=== PATIENT | male | born 1955 | race Caucasian/White ===

== ENCOUNTER 2017-12-23 18:25 | Inpatient (IN) | payer OTHER ==
--- NOTE | 2017-12-23 18:38 | EDM.PDOC ---
ED HPI GENERAL MEDICAL PROBLEM - General Chief Complaint: General Stated Complaint: Fever Time Seen by Provider: 12/23/17 18:35 Source of Information: Reports: Patient, Family (), Old Records ([facility] chart/EMR) History Limitations: Reports: No Limitations - History of Present Illness INITIAL COMMENTS - FREE TEXT/NARRATIVE: The patient was brought to the emergency room via private automobile by his for evaluation of progressive fever, chills, sore throat, and generalized arthralgias nonspecific dizziness, moderate generalized weakness, and additional mild mostly clear productive cough with symptoms starting at about 01 :20 a.m. this morning. The patient did have a fever of 105 at 17:30 hours this afternoon with 1000 g of Tylenol taken at that time. His has had some sore throat type symptoms, however no history of fever, current antibiotic therapy, etc. He denies any other known exposure to infection. The patient denies any chest pain/pressure, heart flutter, orthostasis, orthopnea, diaphoresis, paresthesias, recent decreased exercise tolerance, or any other anginal-type symptoms. No recent history of abdominal pain, heartburn, nausea, diarrhea, melena, gross hematochezia, or any food intolerance, including fatty foods, etc. with normal bowel movement earlier this morning. He denies any gross hematuria, colic, or other UTI symptoms. The patient also denies any recent wheezing, dyspnea, etc... Onset: Today, Gradual Onset Date: 12/23/17 Onset Time: 01:20 Duration: Constant, Getting Worse Location: Reports: Generalized (As above), Other (Sore throat) Quality: Reports: Ache Severity: Mild Improves with: Reports: None Worsens with: Reports: None Context: Reports: Sick Contact (As above) Associated Symptoms: Reports: Confusion, Cough, Fever/Chills, Weakness. Denies : Chest Pain, cough w sputum, Diaphoresis, Headaches, Loss of Appetite, Malaise , Nausea/Vomiting, Rash, Seizure, Shortness of Breath, Syncope Treatments [employer]: Reports: Acetaminophen Throat Pain Score (Numeric/FACES): 3 - Related Data Allergies Allergy/AdvReac Type Severity Reaction Status Date / Time amoxicillin trihydrate Allergy Hives Verified 11/21/15 16:04 [From Augmentin] potassium clavulanate Allergy Hives Verified 11/21/15 16:04 [From Augmentin] Home Meds: Home Meds Etodolac [Lodine] 300 mg PO DAILY 07/02/14 [History] Gabapentin [Neurontin] 300 mg PO BID 07/02/14 [History] Simvastatin [Zocor] 10 mg PO BEDTIME 07/02/14 [History] Valsartan/Hydrochlorothiazide [Diovan Hct 160-25 mg Tablet] 1 tab PO DAILY 07/02 [History] amLODIPine [Norvasc] 10 mg PO DAILY 07/02/14 [History] Acetaminophen 1,000 mg PO Q6H 12/23/17 [History] Sulfacetamide Sodium/Sulfur [Sulfacetamide-Sulfur 10-5% Crm] 1 dose TOP DAILY [History] metroNIDAZOLE [Metronidazole] 1 applic TOP BID 12/23/17 [History] Past Medical History HEENT History: Reports: Hard of Hearing, Impaired Vision. Denies: Allergic Rhinitis, Cataract, Glaucoma, Macular Degeneration, Retinal Detachment Other HEENT History: The patient wears glasses. 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 Cardiovascular History: Reports: High Cholesterol, Hypertension, Other (See Below). Denies: Afib, Aneurysm, Arrhythmia, Blood Clots/VTE/DVT, CAD, Heart Failure, Heart Murmur, ND, Pulmonary Hypertension, PVD, Syncope Other Cardiovascular History: Coronary artery disease and cardiomegaly by distant chest x-ray, however no clinical previous history of heart disease. Respiratory History: Reports: Bronchitis, Recurrent, Pneumonia, Recurrent. Denies: Asthma, COPD, Intubation, Difficult, Intubation, Previous, PE, Pneumothorax, Sleep Apnea, TB Gastrointestinal History: Reports: Gastritis. Denies: Bowel Obstruction, Celiac Disease, Cholelithiasis, Chronic Constipation, Chronic Diarrhea, Colon Polyp, Fecal Incontinence, GERD, GI Bleed, Hepatitis, Inflammatory Bowel Disease , Irritable Bowel Syndrome, Jaundice, Pancreatitis, PUD Genitourinary History: Reports: BPH. Denies: Acute Renal Failure, Chronic Renal Insuffiency, Renal Calculus, Retention, Urinary, STD, Urinary Incontinence , UTI, Recurrent Musculoskeletal History: Reports: Arthritis, Back Pain, Chronic, Osteoarthritis , Other (See Below). Denies: Amputation, Fracture, Gout, Neck Pain, Chronic, Osteoporosis, RA, SLE Other Musculoskeletal History: Mild scoliosis. Neurological History: Reports: Neuropathy, Peripheral. Denies: Cerebral Aneurysms, Concussion, CVA, Headaches, Chronic, Head Trauma, Migraines, MS, Parkinson's, Seizure, TIA Psychiatric History: Reports: None. Denies: Abuse, Victim of, ADD, ADHD, Addiction, Anxiety, Depression, Psych Hospitalization(s), PTSD, Suicide Attempt , Suicidal Ideation Endocrine/Metabolic History: Reports: None. Denies: Diabetes, Type I, Diabetes , Type II, Diabetes Mellitus, Type 3c, Hypothyroidism, IDDM Hematologic History: Reports: None. Denies: Anemia, Blood Transfusion(s), Iron Deficiency Immunologic History: Reports: None. Denies: AIDS, HIV, SLE Oncologic (Cancer) History: Reports: None. Denies: Basal Cell Carcinoma, Colon , Hodgkin's Lymphoma, Leukemia, Lymphoma, Malignant Melanoma, Non-Hodgkin's Lymphoma, Prostate Dermatologic History: Reports: None. Denies: Eczema, Psoriasis - Infectious Disease History Infectious Disease History: Reports: None, Chicken Pox. Denies: C-Difficile, Measles, Meningitis, Mononucleosis, MRSA, Mumps, Pertussis (Whooping Cough), Rheumatic Fever, Rubella, Scarlet Fever, Shingles, TB, VRE - Past Surgical History Head Surgeries/Procedures: Reports: None HEENT Surgical History: Reports: Adenoidectomy, Oral Surgery, Tonsillectomy, Other (See Below). Denies: Eye Surgery, LASIK, Myringotomy w Tube(s), Naso- Sinus Surgery Other HEENT Surgeries/Procedures: Tonsillectomy and adenoidectomy as a child. [place] teeth extraction 4. Cardiovascular Surgical History: Reports: None. Denies: Varicose, Vascular Surgery Respiratory Surgical History: Reports: None. Denies: Thoracentesis GI Surgical History: Reports: Appendectomy, Colonoscopy, Other (See Below). Denies: Cholecystectomy, EGD, Hernia, Abdominal, Hernia, Inguinal, Hernia Repair /Other, Polypectomy Other GI Surgeries/Procedures: Appendectomy at about age 6. Colonoscopy on . Male Surgical History: Reports: Circumcision, Other (See Below). Denies: TURP-Transurethral Resection of Prostate, Vasectomy Other Male Surgeries/Procedures: Circumcision as an . Endocrine Surgical History: Reports: None. Denies: Thyroid Biopsy Neurological Surgical History: Reports: None. Denies: C-Spine, Discectomy, Laminectomy, Lumbar Spine, Sacral Spine, Spinal Fusion, Thoracic Spine, Vertebroplasty Musculoskeletal Surgical History: Reports: Arthroscopic Procedure, Carpal Tunnel , Shoulder Surgery, Other (See Below). Denies: Ganglion Cyst, ORIF, Shoulder Replacement Other Musculoskeletal Surgeries/Procedures:: Carpal tunnel releaseleft-sided. Arthroscopic right shoulder rotator cuff repair in 2012. Oncologic Surgical History: Reports: None Dermatological Surgical History: Reports: None - Past Imaging History Past Imaging History: Reports: CAT Scan (CT of the C-spine on 10/21/07. CT of the neck, soft tissue, on 10/26/07. CT of the maxillofacial region on 04/28/08.), MRI (Right shoulder on 02/21/12. Left knee on 07/18/06.) Social & Family History - Family History HEENT: Reports: None. Denies: Cataract, Glaucoma, Macular Degeneration, Retinal Detachment Cardiac: Reports: Hypertension, Other (See Below). Denies: Afib, Aneurysm, Arrhythmia, Blood Clots/VTE/DVT, CAD, Heart Failure, Heart Murmur, High Cholesterol, ND, PVD/COD, Syncope Other Cardiac Family History: Hypertension in mother. Respiratory: Reports: Sleep Apnea. Denies: Asthma, COPD, PE, Pneumothorax Other Respiratory Family Hisory: Brother with sleep apnea. GI: Reports: None, Pancreatitis, Other (See Below). Denies: Celiac Disease, Cholelithiasis, Chronic Constipation, Colon Polyps, GERD, GI bleed, Inflammatory Bowel Disease, Irritable Bowel Syndrome, PUD Other GI Family History: Father with fatal pancreatitis at age 76. : Reports: None. Denies: Renal Calculus, Renal Disease/Insufficiency OBGYN: Reports: None. Denies: Endometriosis, Recurrent Spontaneous Musculoskeletal: Reports: None. Denies: Arthritis, Gout, Osteoarthritis, RA, SLE Neurological: Reports: Cerebral Aneurysms, CVA, Other (See Below). Denies: Alzheimers Disease, Dementia, Migraines, MS, Parkinson's, Seizure, TIA Other Neurological Family History: Father with cerebral aneurysm with hemorrhagic CVA in his early 70s. Psychiatric: Reports: None. Denies: Abuse, Victim of, ADD, ADHD, Anxiety, Depression, Psych Hospitalization(s), PTSD, Suicide Attempt Endocrine/Metabolic: Reports: Diabetes, type II, IDDM, Other (See Below). Denies: Diabetes, Type I, Diabetes Mellitus, Type 3c, Hypothyroidism Other Endocrine/Metabolic Family History: Mother with IDDM. Hematologic: Reports: None. Denies: Anemia Immunologic: Reports: None. Denies: AIDS, HIV, SLE Dermatologic: Reports: None. Denies: Eczema, Psoriasis Oncologic: Reports: None. Denies: Colon, Esophageal, Hodgkin's Lymphoma, Leukemia, Non-Hodgkin's Lymphoma, Pancreatic, Prostate, Skin - Tobacco Use Smoking Status *Q: Former Smoker Tobacco Use Within Last Twelve Months: No Years of Tobacco use: 20 Packs/Tins Daily: 1.5 Used Tobacco, but Quit: Yes Month/Year Tobacco Last Used: 1982 Smoking Cessation Information Provided To Patient: No Second Hand Smoke Exposure: No Second Hand Smoke Education Provided: No - Caffeine Use Caffeine Use: Reports: Coffee (2 cups per day), Soda (2 sodas per week). Denies : Energy Drinks, Tea - Alcohol Use Alcohol Use History: Yes Days Per Week of Alcohol Use: 0 Number of Drinks Per Day: 1 Number of Drinks Per Day Comment: Usually one beer every 2 weeks. No previous DWIs, problems with alcohol abuse, etc. Total Drinks Per Week: 0 Alcohol Use in Last Twelve Months: Yes Alcohol Use Frequency: Rarely - Recreational Drug Use Recreational Drug Use: No Drug Use in Last 12 Months: No Recreational Drug Type: Denies: Amphetamines (Speed), Cocaine, Dextromethorphan (Cough Syrup), Heroin, Inhalants (Glues, Solvents, Aerosols), LSD (Acid), Marijuana/Hashish, Methamphetamine, Morphine, Oxycodone - Living Situation & Occupation Living situation: Reports: (1980, 2 children), with Family (With ) Occupation: Employed ([employer] for [employer] ED ROS GENERAL - Review of Systems Review Of Systems: ROS reveals no pertinent complaints other than HPI. ED EXAM, GENERAL - Physical Exam Exam: See Below Exam Limited By: Uncooperative General Appearance: Alert, No Apparent Distress Eye Exam: Bilateral Eye: EOMI, Normal Inspection (No nystagmus. Patient wearing glasses), PERRL Ears: Normal External Exam, Normal Canal, Hearing Grossly Normal, Normal TMs Nose: Normal Mucosa, No Blood, Clear Rhinorrhea Throat/Mouth: Normal Lips, Normal Teeth, Normal Gums, Normal Voice, No Airway Compromise. No: Normal Oropharynx (Trace erythema in the posterior pharynx. Tonsils are absent), Dysphagia, Perioral Cyanosis Head: Atraumatic, Normocephalic. No: Facial Swelling, Facial Tenderness, Sinus Tenderness Neck: Normal Inspection, Supple, Non-Tender, Full Range of Motion. No: Lymphadenopathy (L), Lymphadenopathy (R), Thyromegaly Respiratory/Chest: No Respiratory Distress, Lungs Clear, Normal Breath Sounds, No Accessory Muscle Use, Chest Non-Tender. No: Pleural Rub, Retractions Cardiovascular: Normal Peripheral Pulses, No Edema, No Gallop, No JVD, No Murmur , No Rub, Tachycardia (Regular rhythm). No: Gallop/S3, Gallop/S4 Peripheral Pulses: 2+: Radial (L), Radial (R), Dorsalis Pedis (L), Dorsalis Pedis (R) GI/Abdominal: Normal Bowel Sounds, Soft, Non-Tender, No Organomegaly, No Distention, No Abnormal Bruit, No Mass. No: Guarding (Male) Exam: Deferred Rectal (Males) Exam: Deferred Back Exam: Normal Inspection, Full Range of Motion. No: CVA Tenderness (L), CVA Tenderness (R), Muscle Spasm Extremities: Normal Inspection, Normal Range of Motion, Non-Tender, No Pedal Edema, Normal Capillary Refill. No: Narcisa's Sign Neurological: Alert, Oriented, CN II-XII Intact, Normal Cognition, Normal Gait, Normal Reflexes (Negative Babinski's), No Motor/Sensory Deficits Psychiatric: Normal Affect, Normal Mood Skin Exam: Warm, Dry, Intact, Normal Color, No Rash, Diaphoretic (Warm). No: Rash, Wound/Incision Lymphatic: No Adenopathy Course - Vital Signs Last Recorded V/S: Last Vital Signs Temp 39.4 C H 12/23/17 18:25 Pulse 107 H 12/23/17 19:35 Resp 20 12/23/17 19:35 BP 155/80 H 12/23/17 19:35 Pulse Ox 97 12/23/17 19:35 Vital Signs - 24 hr 12/23/17 12/23/17 12/23/17 18:25 18:35 18:50 Temperature [ 39.4 C H Temporal] Pulse, 120 H 113 H 114 H Peripheral [ Left Pulse Oximetry] Respiratory 20 19 22 H Rate Blood Pressure 148/81 H 144/90 H 126/62 [Left Upper Arm ] O2 Sat by Pulse 96 96 96 Oximetry 12/23/17 12/23/17 19:05 19:20 Temperature [ Temporal] Pulse, 112 H 110 H Peripheral [ Left Pulse Oximetry] Respiratory 17 18 Rate Blood Pressure 149/87 H 147/88 H [Left Upper Arm ] O2 Sat by Pulse 97 97 Oximetry - Orders/Labs/Meds Orders: Active Orders 24 hr Category Date Time Status Cardiac Monitoring [RC] . DIRECTED Care 12/23/17 18:41 Inactive Cardiac Monitoring [RC] CONTINUOUS Care 12/23/17 18:38 Active Communication Order [RC] ROUTINE Care 12/23/17 18:38 Active Oxygen Therapy, ED [RC] PRN Care 12/23/17 18:38 Active Peripheral IV Care [RC] . DIRECTED Care 12/23/17 18:39 Active Peripheral IV Care [RC] . DIRECTED Care 12/23/17 19:01 Active Pulse Oximetry [RC] CONTINUOUS Care 12/23/17 18:38 Active Up With Assistance [RC] ASDIRECTED Care 12/23/17 18:38 Active Nothing Per Oral Diet [DIET] Diet 12/23/17 Breakfast Active Chest 1V Frontal [CR] Stat Exams 12/23/17 18:51 Taken Chest 2V [CR] Stat Exams 12/23/17 18:38 Stop Req CULTURE BLOOD [BC] Stat Lab 12/23/17 18:35 Received CULTURE BLOOD [BC] Stat Lab 12/23/17 18:39 Ordered CULTURE SPUTUM + SMEAR [RM] Urgent Lab 12/23/17 18:38 Ordered Azithromycin [Zithromax] 500 mg Med 12/23/17 18:45 Active Sodium Chloride 0.9% [Normal Saline] 250 ml IV Q24H Sodium Chloride 0.9% [Saline Flush] Med 12/23/17 18:38 Active 10 ml FLUSH ASDIRECTED PRN Sodium Chloride 0.9% [Saline Flush] Med 12/23/17 19:01 Active 10 ml FLUSH ASDIRECTED PRN Vancomycin 1 gm Med 12/23/17 18:45 Active Sodium Chloride 0.9% [Normal Saline] 250 ml IV Q24H Blood Culture x2 Reflex Set [OM.PC] Stat [facility] 12/23/17 18:38 Ordered Obtain Past Medical Record [OM.PC] Stat Ot 12/23/17 18:38 Active Peripheral IV Insertion Adult [OM.PC] Stat Ot 12/23/17 18:38 Ordered Peripheral IV Insertion Adult [OM.PC] Stat [facility] 12/23/17 19:01 Ordered Resuscitation Status Routine Resus Stat 12/23/17 18:38 Ordered Medication Orders Azithromycin 500 mg/ Sodium (Chloride) 250 mls @ 250 mls/hr IV Q24H [facility] Last Admin: 12/23/17 19:47 Dose: 250 mls/hr Vancomycin HCl 1 gm/ Sodium (Chloride) 250 mls @ 250 mls/hr IV Q24H [facility] Last Admin: 12/23/17 19:06 Dose: 250 mls/hr Sodium Chloride (Saline Flush) 10 ml FLUSH ASDIRECTED PRN PRN Reason: Keep Vein Open Sodium Chloride (Saline Flush) 10 ml FLUSH ASDIRECTED PRN PRN Reason: Keep Vein Open Labs: Laboratory Tests 12/23/17 12/23/17 12/23/17 Range/Units 18:35 18:35 18:35 WBC 17.7 H (4.0-10.2) K/uL RBC 5.00 (4.33-5.41) M/uL Hgb 15.0 (13.1-16.8) g/dL Hct 43.4 (39.0-49.0) % MCV 86.8 (84.0-98.0) fL MCH 30.0 (28.2-33.3) pg MCHC 34.6 (31.7-36.0) g/dL RDW 13.5 (11.2-14.1) % Plt Count 201 (150-350) K/uL Neut % (Auto) 83.7 H (45.0-80.0) % Lymph % (Auto) 7.2 L (10.0-50.0) % Campbell % (Auto) 8.8 (2.0-14.0) % Eos % (Auto) 0.1 (0.0-5.0) % Baso % (Auto) 0.2 (0.0-2.0) % Neut # (Auto) 14.83 H (1.40-7.00) K/uL Lymph # (Auto) 1.28 (0.50-3.50) K/uL Campbell # (Auto) 1.55 H (0.00-1.00) K/uL Eos # (Auto) 0.01 (0.00-0.50) K/uL Baso # (Auto) 0.03 (0.00-0.20) K/uL Sodium 139 (136-145) mmol/L Potassium 3.4 L (3.5-5.1) mmol/L Chloride 102 (98-107) mmol/L Carbon Dioxide 23.9 (21.0-32.0) mmol/L BUN 18 (7-18) mg/dL Creatinine 1.01 (0.51-1.17) mg/dL Est Cr Clr Drug Dosing 90.72 mL/min Estimated GFR (MDRD) > 60 mL/min Glucose 137 H (74-106) mg/dL Lactic Acid 1.6 (0.4-2.0) mmol/L Calcium 8.6 (8.5-10.1) mg/dL Magnesium 1.6 L (1.8-2.4) mg/dL Total Bilirubin 0.6 (0.2-1.0) mg/dL AST 16 (15-37) U/L ALT 30 (12-78) U/L Alkaline Phosphatase 78 (46-116) IU/L Total Protein 7.9 (6.4-8.2) g/dL Albumin 3.4 (3.4-5.0) g/dL Blood cultures 2 were collected Microbiology 12/23/17 18:38 Influenza Type A Antigen Screen - Final Nasal, Unspecified NEGATIVE INFLUENZA A VIRUS AG Influenza Type B Antigen Screen - Final NEGATIVE INFLUENZA B VIRUS AG 12/23/17 18:44 Group A Streptococcus Rapid Screen - Final Throat Positive For Group A Strep Ag Meds: Medications Generic Name Dose Route Start Last Admin Trade Name Freq PRN Reason Stop Dose Admin Azithromycin 500 mg/ Sodium 250 mls @ 250 mls/hr 12/23/17 18:45 12/23/17 19: 47 Chloride IV 250 mls/hr Q24H ALMITA Administration Vancomycin HCl 1 gm/ Sodium 250 mls @ 250 mls/hr 12/23/17 18:45 12/23/17 19: 06 Chloride IV 250 mls/hr Q24H ALMITA Administration Sodium Chloride 10 ml 09/22/18 18:38 Saline Flush FLUSH ASDIRECTED PRN Keep Vein Open Sodium Chloride 10 ml 12/23/17 19:01 Saline Flush FLUSH ASDIRECTED PRN Keep Vein Open Discontinued Medications Generic Name Dose Route Start Last Admin Trade Name Freq PRN Reason Stop Dose Admin Lactated Ringer's 1,000 mls @ 999 mls/hr 12/23/17 18:41 12/23/17 18:46 Ringers, Lactated IV 12/23/17 19:41 999 mls/hr .BOLUS ONE Administration - Radiology Interpretation Free Text/Narrative:: Chest x-ray, portable, shows evidence of borderline pulmonary obstructive disease with mild prominence of the proximal aortic arch, however no pulmonary infiltrates, cardiomegaly, CHF, pneumothorax, etc. [employer] initially showed moderate sinus tachycardia in the 110s with improvement to the low 100s at time of admission. No ectopy or arrhythmia. Departure - Departure Time of Disposition: 20:00 Disposition: Admitted As Inpatient 64 Condition: Fair Clinical Impression: Strep pharyngitis, Tachycardia, Hypokalemia, Hypomagnesemia Hypertension Qualifiers: Hypertension type: essential hypertension Qualified Code(s): I10 - Essential ( primary) hypertension Hyperlipidemia Qualifiers: Hyperlipidemia type: unspecified Qualified Code(s): E78.5 - Hyperlipidemia, unspecified Osteoarthritis Qualifiers: Osteoarthritis location: multiple joints Osteoarthritis type: primary Qualified Code(s): M15.0 - Primary generalized (osteo)arthritis - Discharge Information *PRESCRIPTION DRUG MONITORING PROGRAM REVIEWED*: Not Applicable *COPY OF PRESCRIPTION DRUG MONITORING REPORT IN PATIENT LEORA: Not Applicable - Problem List & Annotations (1) Strep pharyngitis SNOMED Code(s): 52793370 Code(s): J02.0 - STREPTOCOCCAL PHARYNGITIS Status: Acute Priority: High Current Visit: No Onset Date: 12/23/17 Annotation/Comment:: Positive strep screen with probable secondary sepsis especially in light of his high fever, tachycardia, and leukocytosis. Sepsis protocol initiated in the emergency room including initiation of aggressive IV vancomycin therapy and additional IV Zithromax during this hospitalization. Note previous allergy to Augmentin. Blood cultures 2 were collected. Additional UA with culture and sensitivity to be collected after admission. Patient's symptoms did improve at time of admission. Continue to observe closely. (2) Tachycardia SNOMED Code(s): 4095708 Code(s): R00.0 - TACHYCARDIA, UNSPECIFIED Status: Acute Current Visit: No (3) Hyperlipidemia SNOMED Code(s): 44462730 Code(s): E78.5 - HYPERLIPIDEMIA, UNSPECIFIED Status: Chronic Priority: Medium Current Visit: No Annotation/Comment:: Currently under therapy Qualifiers: Hyperlipidemia type: unspecified Qualified Code(s): E78.5 - Hyperlipidemia , unspecified (4) Hypertension SNOMED Code(s): 03840587 Code(s): I10 - ESSENTIAL (PRIMARY) HYPERTENSION Status: Chronic Priority : Medium Current Visit: No Annotation/Comment:: Under good control in the emergency room despite tachycardia and suspicions of possible sepsis Qualifiers: Hypertension type: essential hypertension Qualified Code(s): I10 - Essential (primary) hypertension (5) Hypokalemia SNOMED Code(s): 07527768 Code(s): E87.6 - HYPOKALEMIA Status: Acute Priority: Medium Current Visit: No Onset Date: 12/23/17 Annotation/Comment:: Mild hypokalemia. IV lactated Ringer's IV bolus started in the emergency room with continuation of aggressive IV hydration during initial phases of hospitalization. (6) Hypomagnesemia SNOMED Code(s): 193756680 Code(s): E83.42 - HYPOMAGNESEMIA Status: Acute Priority: Medium Current Visit: No Annotation/Comment:: Initiate magnesium oxide therapy on admission. (7) Osteoarthritis SNOMED Code(s): 067114931 Code(s): M19.90 - UNSPECIFIED OSTEOARTHRITIS, UNSPECIFIED SITE Status: Chronic Priority: Medium Current Visit: No Annotation/Comment:: Stable by history with exception of generalized arthralgias currently secondary to his current infection. Qualifiers: Osteoarthritis location: multiple joints Osteoarthritis type: primary Qualified Code(s): M15.0 - Primary generalized (osteo)arthritis - Problem List Review Problem List Initiated/Reviewed/Updated: Yes - My Orders Last 24 Hours: My Active Orders 12/23/17 18:35 CULTURE BLOOD [BC] Stat 12/23/17 18:38 Cardiac Monitoring [RC] CONTINUOUS Communication Order [RC] ROUTINE Oxygen Therapy, ED [RC] PRN Pulse Oximetry [RC] CONTINUOUS Up With Assistance [RC] ASDIRECTED Chest 2V [CR] Stat CULTURE SPUTUM + SMEAR [RM] Urgent Sodium Chloride 0.9% [Saline Flush] 10 ml FLUSH ASDIRECTED PRN Blood Culture x2 Reflex Set [OM.PC] Stat Obtain Past Medical Record [OM.PC] Stat Peripheral IV Insertion Adult [OM.PC] Stat Resuscitation Status Routine 12/23/17 18:39 Peripheral IV Care [RC] . DIRECTED CULTURE BLOOD [BC] Stat 12/23/17 18:41 Cardiac Monitoring [RC] . DIRECTED 12/23/17 18:45 Azithromycin [Zithromax] 500 mg Sodium Chloride 0.9% [Normal Saline] 250 ml IV Q24H Vancomycin 1 gm Sodium Chloride 0.9% [Normal Saline] 250 ml IV Q24H 12/23/17 18:51 Chest 1V Frontal [CR] Stat 12/23/17 19:01 Peripheral IV Care [RC] . DIRECTED Sodium Chloride 0.9% [Saline Flush] 10 ml FLUSH ASDIRECTED PRN Peripheral IV Insertion Adult [OM.PC] Stat 12/23/17 Breakfast Nothing Per Oral Diet [DIET] - Assessment/Plan Admission H&P: Please use this note as an admission H&P Last 24 Hours: My Active Orders 12/23/17 18:35 CULTURE BLOOD [BC] Stat 12/23/17 18:38 Cardiac Monitoring [RC] CONTINUOUS Communication Order [RC] ROUTINE Oxygen Therapy, ED [RC] PRN Pulse Oximetry [RC] CONTINUOUS Up With Assistance [RC] ASDIRECTED Chest 2V [CR] Stat CULTURE SPUTUM + SMEAR [RM] Urgent Sodium Chloride 0.9% [Saline Flush] 10 ml FLUSH ASDIRECTED PRN Blood Culture x2 Reflex Set [OM.PC] Stat Obtain Past Medical Record [OM.PC] Stat Peripheral IV Insertion Adult [OM.PC] Stat Resuscitation Status Routine 12/23/17 18:39 Peripheral IV Care [RC] . DIRECTED CULTURE BLOOD [BC] Stat 12/23/17 18:41 Cardiac Monitoring [RC] . DIRECTED 12/23/17 18:45 Azithromycin [Zithromax] 500 mg Sodium Chloride 0.9% [Normal Saline] 250 ml IV Q24H Vancomycin 1 gm Sodium Chloride 0.9% [Normal Saline] 250 ml IV Q24H 12/23/17 18:51 Chest 1V Frontal [CR] Stat 09/22/18 19:01 Peripheral IV Care [RC] . DIRECTED Sodium Chloride 0.9% [Saline Flush] 10 ml FLUSH ASDIRECTED PRN Peripheral IV Insertion Adult [OM.PC] Stat 12/23/17 Breakfast Nothing Per Oral Diet [DIET] Assessment:: As above Plan: As above. Extensive precautions were given to the patient and his , who is in agreement with the treatment plan. The patient will require about 3-4 days of inpatient/acute care secondary to multiple health problems as above.
[2017-12-23] MEDS ORDERED: Lactated Ringers 1,000 ML IV ONE ×2 (18:41→20:52)
[2017-12-23] MEDS ORDERED: Azithromycin 500 MG in Sodium Chloride 0.9% 250 ML IV SCH ×2 (18:45→21:15)
[2017-12-23] MEDS ORDERED: Sodium Chloride 0.9% 10 ML Syringe FLUSH PRN (19:01)
[2017-12-23 19:10] LABS: CHLORIDE,CL 102 mmol/L (98-107); SODIUM,NA 139 mmol/L (136-145)
[2017-12-23] MEDS ORDERED: Albuterol/Ipratropium 3.0-0.5 MG/3 ML Neb Soln NEB PRN (20:47)
[2017-12-23] MEDS ORDERED: Temazepam 15 MG Cap PO PRN (20:47)
[2017-12-23] MEDS ORDERED: Albuterol 0.083% 2.5 MG/3 ML Neb Soln NEB PRN (20:47)
[2017-12-23] MEDS ORDERED: Ketorolac 30 MG/ML SDV IVPUSH ONE (20:50)
[2017-12-23] MEDS ORDERED: Ketorolac 15 MG/ML SDV IVPUSH PRN (20:51)
[2017-12-23] MEDS ORDERED: Phenol 1.4% Oral Spray 177 ML Bottle MUCMEM PRN (20:54)
[2017-12-23] MEDS: Pantoprazole 40 MG Vial IVPUSH SCH (21:32)
[2017-12-23] MEDS: Magnesium Oxide 400 MG Tab PO SCH (21:32)
[2017-12-23] MEDS: Sodium Chloride 0.9% 10 ML Syringe FLUSH SCH (21:33)
[2017-12-23] MEDS: Lactated Ringers 1,000 ML IV SCH (22:36)
[2017-12-24] MEDS: Sodium Chloride 0.9% 10 ML Syringe FLUSH PRN ×2 (02:59→16:03)
[2017-12-24] MEDS: Ketorolac 15 MG/ML SDV IVPUSH PRN ×4 (03:00→22:24)
[2017-12-24] MEDS: Lactated Ringers 1,000 ML IV SCH ×2 (07:12→16:40)
[2017-12-24] MEDS ORDERED: Potassium Chloride 20 MEQ Tab.ER PO SCH (08:00)
[2017-12-24] MEDS ORDERED: SULFACETAMIDE TOP SCH (08:00)
[2017-12-24] MEDS ORDERED: [UNRECOGNIZED DRUG - OTHER] TOP SCH (08:00)
[2017-12-24] MEDS ORDERED: METRONIDAZOLE TOP SCH (08:00)
[2017-12-24] MEDS ORDERED: Non-Formulary Medication 1 Each (Valsartan/Hydrochlorothiazide [Diovan Hct 160-25 Mg Table PO SCH (08:00)
[2017-12-24] MEDS ORDERED: amLODIPine 5 MG Tab PO SCH (08:00)
[2017-12-24] MEDS ORDERED: SULFUR TOP SCH (08:00)
[2017-12-24 08:21] LABS: CHLORIDE,CL 105 mmol/L (98-107); SODIUM,NA 141 mmol/L (136-145)
[2017-12-24] MEDS: Gabapentin 300 MG Cap PO SCH ×2 (08:27→18:18)
[2017-12-24] MEDS: Dextromethorphan/guaiFENesin 600-30 MG Tab.ER PO SCH ×2 (08:28→18:19)
[2017-12-24] MEDS: Sodium Chloride 0.9% 10 ML Syringe FLUSH SCH ×2 (08:29→21:01)
[2017-12-24] MEDS: Pantoprazole 40 MG Vial IVPUSH SCH ×2 (08:29→21:01)
[2017-12-24] MEDS ORDERED: Lactated Ringers 1,000 ML IV ONE (08:39)
[2017-12-24] MEDS: Acetaminophen 325 MG Tab PO PRN ×4 (09:00→22:19)
[2017-12-24] MEDS: Hydrochlorothiazide 25 MG Tab PO SCH (09:01)
[2017-12-24] MEDS: Vancomycin 1.5 GM in Dextrose 5% in Water 500 ML IV SCH ×4 (09:03→21:01)
--- NOTE | 2017-12-24 09:11 | PCM.PN ---
- General Info Date of Service: 12/24/17 Admission Dx/Problem (Free Text): 1. Tachycardia 2. Strep pharyngitis with suspected secondary sepsis Functional Status: Reports: Pain Controlled, Tolerating Diet, Ambulating, Urinating. Denies: New Symptoms, Incentive Spirometry Pain Score: 4 (Sore throat) - Review of Systems General: Reports: Fever, Chills, Appetite (Improved). Denies: Weakness, Fatigue , Malaise HEENT: Reports: Post Nasal Drip (Stable clear nasal drainage), Sore Throat, Rhinitis. Denies: Dysphasia, Headaches, Sinus Congestion, Visual Changes Pulmonary: Reports: Cough, Sputum (Clear). Denies: Shortness of Breath, Pleuritic Chest Pain, Hemoptysis, Wheezing Cardiovascular: Reports: No Symptoms. Denies: Chest Pain, Palpitations, Dyspnea on Exertion, Orthopnea, PND, Edema, Lightheadedness Gastrointestinal: Reports: No Symptoms. Denies: Abdominal Pain, Constipation, Decreased Appetite, Diarrhea (Loose stool this morning), Difficulty Swallowing, Flatus, Hematochezia, Melena, Nausea, Vomiting Genitourinary: Reports: No Symptoms. Denies: Dysuria, Frequency, Burning, Urgency, Incontinence, Hematuria, Retention, Flank Pain Musculoskeletal: Reports: Other (Generalized arthralgias) Skin: Denies: Diaphoresis, Bruising, Rash Neurological: Reports: Weakness (Stable generalized secondary to current infection). Denies: Confusion, Dizziness, Headache, Numbness, Paresthesia, Seizure, Tingling, Trouble Speaking, Difficulty Walking Psychiatric: Reports: No Symptoms. Denies: Confusion, Depression, Anxiety - Patient Data Vitals - Most Recent: Last Vital Signs Temp 37.9 C 12/24/17 08:00 Pulse 76 12/24/17 08:00 Resp 20 12/24/17 08:00 BP 120/72 12/24/17 09:02 Pulse Ox 93 L 12/24/17 08:00 Vital Signs - 24 hr 12/23/17 12/23/17 12/23/17 18:25 18:35 18:50 Temperature [ Oral] Temperature [ 39.4 C H Temporal] Pulse, 120 H 113 H 114 H Peripheral [ Left Pulse Oximetry] Respiratory 20 19 22 H Rate Blood Pressure Blood Pressure 148/81 H 144/90 H 126/62 [Left Upper Arm ] O2 Sat by Pulse 96 96 96 Oximetry 12/23/17 12/23/17 12/23/17 19:05 19:20 19:35 Temperature [ Oral] Temperature [ Temporal] Pulse, 112 H 110 H 107 H Peripheral [ Left Pulse Oximetry] Respiratory 17 18 20 Rate Blood Pressure Blood Pressure 149/87 H 147/88 H 155/80 H [Left Upper Arm ] O2 Sat by Pulse 97 97 97 Oximetry 12/23/17 12/23/17 12/23/17 20:00 20:47 22:00 Temperature [ 39.6 C H Oral] Temperature [ 39.8 C H Temporal] Pulse, 109 H 101 H Peripheral [ Left Pulse Oximetry] Respiratory 18 18 Rate Blood Pressure Blood Pressure 155/92 H 121/68 [Left Upper Arm ] O2 Sat by Pulse 97 97 95 Oximetry 12/24/17 12/24/17 12/24/17 00:00 02:00 04:00 Temperature [ 38.2 C H 38.8 C H 37.6 C Oral] Temperature [ Temporal] Pulse, 80 89 76 Peripheral [ Left Pulse Oximetry] Respiratory 17 20 16 Rate Blood Pressure Blood Pressure 143/70 H 125/88 118/59 L [Left Upper Arm ] O2 Sat by Pulse 95 95 94 L Oximetry 12/24/17 12/24/17 12/24/17 06:00 08:00 09:02 Temperature [ 37.6 C 37.9 C Oral] Temperature [ Temporal] Pulse, 77 76 Peripheral [ Left Pulse Oximetry] Respiratory 18 20 Rate Blood Pressure 120/72 Blood Pressure 137/66 99/54 L [Left Upper Arm ] O2 Sat by Pulse 95 93 L Oximetry Per nurse's note artifactually decreased blood pressure at 8 AM this morning secondary to patient's arm position with normal follow-up blood pressure at 9: 02 AM as above Weight - Most Recent: 121.517 kg I&O - Last 24 Hours: Intake & Output 12/23/17 12/24/17 12/24/17 22:59 06:59 14:59 Intake Total 4290 Output Total 1500 2200 Balance -1500 0 Imaging Impressions - Last 24 Hours: monitoring coordinator initially showed sinus tachycardia in the 110s with improvement of heart rhythm to 70s to 80s this morning with very occasional PACs Lab Results Last 24 Hours: Laboratory Results - last 24 hr 12/23/17 12/23/17 12/23/17 Range/Units 18:35 18:35 18:35 WBC 17.7 H (4.0-10.2) K/uL RBC 5.00 (4.33-5.41) M/uL Hgb 15.0 (13.1-16.8) g/dL Hct 43.4 (39.0-49.0) % MCV 86.8 (84.0-98.0) fL MCH 30.0 (28.2-33.3) pg MCHC 34.6 (31.7-36.0) g/dL RDW 13.5 (11.2-14.1) % Plt Count 201 (150-350) K/uL Neut % (Auto) 83.7 H (45.0-80.0) % Lymph % (Auto) 7.2 L (10.0-50.0) % Mills % (Auto) 8.8 (2.0-14.0) % Eos % (Auto) 0.1 (0.0-5.0) % Baso % (Auto) 0.2 (0.0-2.0) % Neut # (Auto) 14.83 H (1.40-7.00) K/uL Lymph # (Auto) 1.28 (0.50-3.50) K/uL Mills # (Auto) 1.55 H (0.00-1.00) K/uL Eos # (Auto) 0.01 (0.00-0.50) K/uL Baso # (Auto) 0.03 (0.00-0.20) K/uL Sodium 139 (136-145) mmol/L Potassium 3.4 L (3.5-5.1) mmol/L Chloride 102 (98-107) mmol/L Carbon Dioxide 23.9 (21.0-32.0) mmol/L BUN 18 (7-18) mg/dL Creatinine 1.01 (0.51-1.17) mg/dL Est Cr Clr Drug Dosing 90.72 mL/min Estimated GFR (MDRD) > 60 mL/min Glucose 137 H (74-106) mg/dL Lactic Acid 1.6 (0.4-2.0) mmol/L Calcium 8.6 (8.5-10.1) mg/dL Magnesium 1.6 L (1.8-2.4) mg/dL Total Bilirubin 0.6 (0.2-1.0) mg/dL AST 16 (15-37) U/L ALT 30 (12-78) U/L Alkaline Phosphatase 78 (46-116) IU/L Total Protein 7.9 (6.4-8.2) g/dL Albumin 3.4 (3.4-5.0) g/dL 12/24/17 12/24/17 Range/Units 07:30 07:30 WBC 17.1 H (4.0-10.2) K/uL RBC 4.71 (4.33-5.41) M/uL Hgb 13.9 (13.1-16.8) g/dL Hct 41.4 (39.0-49.0) % MCV 87.9 (84.0-98.0) fL MCH 29.5 (28.2-33.3) pg MCHC 33.6 (31.7-36.0) g/dL RDW 13.6 (11.2-14.1) % Plt Count 173 (150-350) K/uL Neut % (Auto) 80.9 H (45.0-80.0) % Lymph % (Auto) 8.4 L (10.0-50.0) % Mills % (Auto) 10.5 (2.0-14.0) % Eos % (Auto) 0.0 (0.0-5.0) % Baso % (Auto) 0.2 (0.0-2.0) % Neut # (Auto) 13.85 H (1.40-7.00) K/uL Lymph # (Auto) 1.43 (0.50-3.50) K/uL Mills # (Auto) 1.80 H (0.00-1.00) K/uL Eos # (Auto) 0.00 (0.00-0.50) K/uL Baso # (Auto) 0.03 (0.00-0.20) K/uL Sodium 141 (136-145) mmol/L Potassium 3.3 L (3.5-5.1) mmol/L Chloride 105 (98-107) mmol/L Carbon Dioxide 26.3 (21.0-32.0) mmol/L BUN 15 (7-18) mg/dL Creatinine 0.98 (0.51-1.17) mg/dL Est Cr Clr Drug Dosing 93.49 mL/min Estimated GFR (MDRD) > 60 mL/min Glucose 117 H (74-106) mg/dL Lactic Acid (0.4-2.0) mmol/L Calcium 8.3 L (8.5-10.1) mg/dL Magnesium (1.8-2.4) mg/dL Total Bilirubin 0.6 (0.2-1.0) mg/dL AST 16 (15-37) U/L ALT 25 (12-78) U/L Alkaline Phosphatase 65 (46-116) IU/L Total Protein 7.0 (6.4-8.2) g/dL Albumin 2.9 L (3.4-5.0) g/dL Note repeat lactic acid level this morning was still normal at 1.8. Blood cultures 2 still pending Microbiology 12/23/17 18:38 Nasal, Unspecified Influenza Type A Antigen Screen - Final NEGATIVE INFLUENZA A VIRUS AG 12/23/17 18:38 Nasal, Unspecified Influenza Type B Antigen Screen - Final NEGATIVE INFLUENZA B VIRUS AG 12/23/17 18:44 Throat Group A Streptococcus Rapid Screen - Final Positive For Group A Strep Ag Loco Results Last 24 Hours: Microbiology 12/23/17 18:38 Influenza Type A Antigen Screen - Final Nasal, Unspecified NEGATIVE INFLUENZA A VIRUS AG Influenza Type B Antigen Screen - Final NEGATIVE INFLUENZA B VIRUS AG 12/23/17 18:44 Group A Streptococcus Rapid Screen - Final Throat Positive For Group A Strep Ag Med Orders - Current: Current Medications Acetaminophen (Tylenol) 650 mg PO Q4H PRN PRN Reason: Pain (Mild 1-3)/fever Last Admin: 12/24/17 09:00 Dose: 650 mg Albuterol (Proventil Neb Soln) 2.5 mg NEB Q2H PRN PRN Reason: Dyspnea Albuterol/Ipratropium (Duoneb 3.0-0.5 Mg/3 Ml) 3 ml NEB Q4H PRN PRN Reason: Dyspnea Amlodipine Besylate (Norvasc) 10 mg PO QPM [facility] Gabapentin (Neurontin) 300 mg PO BID [facility] Last Admin: 12/24/17 08:27 Dose: 300 mg Guaifenesin/Dextromethorphan (Mucinex Dm Er 600-30 Mg) 1 tab PO BID [facility] Last Admin: 12/24/17 08:28 Dose: 1 tab Hydrochlorothiazide (Hydrochlorothiazide) 25 mg PO DAILY [facility] Last Admin: 12/24/17 09:01 Dose: 25 mg Azithromycin 500 mg/ Sodium (Chloride) 250 mls @ 250 mls/hr IV Q24H [facility] Vancomycin HCl 1.5 gm/ (Dextrose/Water) 500 mls @ 220 mls/hr IV Q12H [facility] Last Admin: 12/24/17 09:03 Dose: 220 mls/hr Lactated Ringer's (Ringers, Lactated) 1,000 mls @ 150 mls/hr IV ASDIRECTED [facility] Ketorolac Tromethamine (Toradol) 15 mg IVPUSH Q6H PRN PRN Reason: Fever Greater Than 102 Stop: 12/25/17 08:00 Last Admin: 12/24/17 03:00 Dose: 15 mg Magnesium Oxide (Magnesium Oxide) 400 mg PO QPM [facility] Last Admin: 12/23/17 21:32 Dose: 400 mg Non-Formulary Medication (Metronidazole [Metronidazole]) 1 applic TOP BID [facility] Non-Formulary Medication (Sulfacetamide Sodium/Sulfur [Sulfacetamide-Sulfur 10-5 % Crm]) 1 dose TOP DAILY [facility] Pantoprazole Sodium (Protonix Iv) 40 mg IVPUSH Q12H [facility] Last Admin: 12/24/17 08:29 Dose: 40 mg Phenol/Menthol (Chloraseptic Throat Garrison) 0 ml MUCMEM Q2H PRN PRN Reason: Sore Throat Potassium Chloride (Klor-Con M20) 20 meq PO TID [facility] Simvastatin (Zocor) 10 mg PO BEDTIME [facility] Sodium Chloride (Saline Flush) 10 ml FLUSH ASDIRECTED PRN PRN Reason: Keep Vein Open Last Admin: 12/24/17 02:59 Dose: 10 ml Sodium Chloride (Saline Flush) 10 ml FLUSH ASDIRECTED PRN PRN Reason: Keep Vein Open Sodium Chloride (Saline Flush) 10 ml FLUSH Q12H [facility] Last Admin: 12/24/17 08:29 Dose: 10 ml Temazepam (Restoril) 15 mg PO BEDTIME PRN PRN Reason: Insomnia Valsartan (Diovan) 160 mg PO DAILY [facility] Last Admin: 12/24/17 09:02 Dose: 160 mg Discontinued Medications Amlodipine Besylate (Norvasc) 10 mg PO DAILY [facility] Azithromycin 500 mg/ Sodium (Chloride) 250 mls @ 250 mls/hr IV Q24H [facility] Last Admin: 12/23/17 19:47 Dose: 250 mls/hr Vancomycin HCl 1 gm/ Sodium (Chloride) 250 mls @ 250 mls/hr IV Q24H [facility] Last Admin: 12/23/17 19:06 Dose: 250 mls/hr Lactated Ringer's (Ringers, Lactated) 1,000 mls @ 999 mls/hr IV .BOLUS ONE Stop: 12/23/17 19:41 Last Admin: 12/23/17 18:46 Dose: 999 mls/hr Lactated Ringer's (Ringers, Lactated) 1,000 mls @ 999 mls/hr IV ONETIME ONE Stop: 12/23/17 21:52 Last Admin: 12/23/17 21:32 Dose: 999 mls/hr Lactated Ringer's (Ringers, Lactated) 1,000 mls @ 125 mls/hr IV ASDIRECTED [facility] Last Admin: 12/24/17 07:12 Dose: 125 mls/hr Lactated Ringer's (Ringers, Lactated) 1,000 mls @ 999 mls/hr IV .BOLUS ONE Stop: 12/24/17 09:39 Ketorolac Tromethamine (Toradol) 30 mg IVPUSH ONETIME ONE Stop: 12/23/17 20:51 Last Admin: 12/23/17 21:32 Dose: 30 mg Ketorolac Tromethamine (Toradol) 15 mg IVPUSH Q6H PRN PRN Reason: Fever Greater Than 102 Stop: 12/28/17 20:51 Potassium Chloride (Klor-Con M20) 20 meq PO DAILY [facility] Last Admin: 12/24/17 08:28 Dose: 20 meq - Exam Quality Assessment: DVT Prophylaxis. No: Supplemental Oxygen, Central Line/PICC , Urine Catheter, Skin Breakdown, Restraints General: Alert, Oriented, Cooperative, No Acute Distress HEENT: Pupils Equal, Pupils Reactive, Mucous Membr. Moist/[place]. No: Scleral Icterus Neck: Supple, Trachea Midline, No JVD, No Thyromegaly. No: Lymphadenopathy, Thyromegaly Lungs: Clear to Auscultation, Normal Respiratory Effort. No: Rub Cardiovascular: Regular Rate, Regular Rhythm. No: Gallops, Rubs GI/Abdominal Exam: Soft, Non-Tender, No Organomegaly, No Distention, No Abnormal Bruit, No Mass, Abnormal Bowel Sounds (Borderline increased bowel sounds none high-pitched in nature), Other (Obese). No: Guarding, Rebound (Male) Exam: Deferred Back Exam: Normal Inspection, Full Range of Motion. No: CVA Tenderness (L), CVA Tenderness (R), Muscle Spasm Extremities: Normal Inspection, Normal Range of Motion, Non-Tender, No Pedal Edema, Normal Capillary Refill. No: Narcisa's Sign Peripheral Pulses: 2+: Radial (L), Radial (R), Dorsalis Pedis (L), Dorsalis Pedis (R) Skin: Warm, Dry, Intact, Other (Occasional warm diaphoresis with high fevers) Neurological: No New Focal Deficit Psy/Mental Status: Alert, Normal Affect, Normal Mood. No: Agitated, Hallucinations, Withdrawal Symptoms - Problem List & Annotations (1) Strep pharyngitis SNOMED Code(s): 04707680 Code(s): J02.0 - STREPTOCOCCAL PHARYNGITIS Status: Acute Priority: High Current Visit: Yes Onset Date: 12/23/17 Annotation/Comment:: Note persistent fevers and leukocytosis this morning with increase of his vancomycin therapy to 1.5 g IV every 12 hours started this morning per recommendations from pharmacy. Tachycardia has resolved with stable blood pressures. Continue every 2 hours vitals and telemetry for now. Positive strep screen on admission with strong suspicion of probable secondary sepsis especially in light of his high fever, tachycardia, and leukocytosis. Sepsis protocol initiated in the emergency room, including initiation of aggressive IV vancomycin therapy and additional IV Zithromax during this hospitalization. Note previous allergy to Augmentin. Blood cultures 2 were collected with results still pending. Additional UA with culture and sensitivity still needs to be collected. Mild loose stools secondary to IV antibiotic therapy, however observe for now. Chest x-ray report from yesterday indicates no evidence of pneumonia. Patient's symptoms did improve at time of admission, however continue to remain refractory to therapy as above. Continue to observe closely with consideration of IV vasopressors and/or hospital transfer depending on his clinical course. Patient's is here during rounds this morning with additional telephone update of the patient's care and treatment plan with her daughter this morning during rounds. [facility] [place] assumes care in the a.m. Vancomycin trough level needs to be ordered after his third dose tomorrow with further inpatient care needed. Additional Tylenol this morning with continuation of IV Toradol until tomorrow morning for his fevers and generalized arthralgias. He is receiving high-dose IV Protonix as GI prophylaxis. (2) Tachycardia SNOMED Code(s): 6661177 Code(s): R00.0 - TACHYCARDIA, UNSPECIFIED Status: Acute Priority: Medium Current Visit: Yes Annotation/Comment:: As above. Resolve this morning. Continue telemetry as above. No chest pain or anginal type symptoms. (3) Hyperlipidemia SNOMED Code(s): 32941613 Code(s): E78.5 - HYPERLIPIDEMIA, UNSPECIFIED Status: Chronic Priority: Medium Current Visit: Yes Qualifiers: Hyperlipidemia type: unspecified Qualified Code(s): E78.5 - Hyperlipidemia , unspecified Annotation/Comment:: Currently under therapy (4) Hypertension SNOMED Code(s): 30143419 Code(s): I10 - ESSENTIAL (PRIMARY) HYPERTENSION Status: Chronic Priority : Medium Current Visit: Yes Qualifiers: Hypertension type: essential hypertension Qualified Code(s): I10 - Essential (primary) hypertension Annotation/Comment:: Under good control so far during this hospitalization and in the emergency room despite tachycardia and suspicions of probable sepsis. Patient's Norvasc will be changed to every afternoon so that his antihypertensive medications can be staggered. (5) Hypokalemia SNOMED Code(s): 26448169 Code(s): E87.6 - HYPOKALEMIA Status: Acute Priority: Medium Current Visit: Yes Onset Date: 12/23/17 Annotation/Comment:: Mildly hypokalemia despite IV hydration and oral potassium supplementation. Note. IV lactated Ringer's IV bolus started in the emergency room with 2 boluses given prior to initiation of continuation of aggressive IV lactated Ringer's fluid with hydration to be increased from 125 ml per hour to 150 mls per hour for now. (6) Hypomagnesemia SNOMED Code(s): 346784236 Code(s): E83.42 - HYPOMAGNESEMIA Status: Acute Priority: Medium Current Visit: Yes Annotation/Comment:: Initiated magnesium oxide therapy on admission. Magnesium level to be repeated in the a.m.. May need to stop magnesium, if significant diarrhea persists. (7) Osteoarthritis SNOMED Code(s): 910256490 Code(s): M19.90 - UNSPECIFIED OSTEOARTHRITIS, UNSPECIFIED SITE Status: Chronic Priority: Medium Current Visit: No Qualifiers: Osteoarthritis location: multiple joints Osteoarthritis type: primary Qualified Code(s): M15.0 - Primary generalized (osteo)arthritis Annotation/Comment:: Stable by history with exception of generalized arthralgias currently secondary to his current infection. Continue IV Toradol as above. (8) Hypoalbuminemia SNOMED Code(s): 653734062 Code(s): E88.09 - OTH DISORDERS OF PLASMA-PROTEIN METABOLISM, NEC Status: Acute Priority: Medium Current Visit: Yes Onset Date: 12/24/17 Annotation/Comment:: Albumin level normal on admission. Observe for now with possible rehydration effect. Blood work to be repeated in the a.m. - Problem List Review Problem List Initiated/Reviewed/Updated: Yes - My Orders Last 24 Hours: My Active Orders 12/23/17 18:35 CULTURE BLOOD [BC] Stat 12/23/17 18:38 Cardiac Monitoring [RC] Q2HR Communication Order [RC] ROUTINE Oxygen Therapy, ED [RC] PRN Pulse Oximetry [RC] CONTINUOUS Up With Assistance [RC] ASDIRECTED CULTURE SPUTUM + SMEAR [RM] Urgent Sodium Chloride 0.9% [Saline Flush] 10 ml FLUSH ASDIRECTED PRN Blood Culture x2 Reflex Set [OM.PC] Stat Peripheral IV Insertion Adult [OM.PC] Stat Resuscitation Status Routine 12/23/17 18:39 Peripheral IV Care [RC] . DIRECTED 12/23/17 18:41 Cardiac Monitoring [RC] . DIRECTED 12/23/17 18:51 Chest 1V Frontal [CR] Stat 12/23/17 19:01 Peripheral IV Care [RC] . DIRECTED Sodium Chloride 0.9% [Saline Flush] 10 ml FLUSH ASDIRECTED PRN Peripheral IV Insertion Adult [OM.PC] Stat 12/23/17 19:45 CULTURE BLOOD [BC] Stat 12/23/17 20:47 Antiembolic Devices [RC] 08,20 Height and Weight [RC] DAILY Intake and Output Strict [RC] QSHIFT Oxygen Therapy [RC] PRN Pulse Oximetry [RC] ASDIRECTED Vital Signs [RC] Q2HR OCCULT BLOOD DIAGNOSTIC [OP] Routine Albuterol [Proventil Neb Soln] 2.5 mg NEB Q2H PRN Albuterol/Ipratropium [DuoNeb 3.0-0.5 MG/3 ML] 3 ml NEB Q4H PRN Temazepam [Restoril] 15 mg PO BEDTIME PRN DVT/VTE Prophylaxis Reflex [OM.PC] Routine GM Immunization Reflex [OM.PC] Click To Edit 12/23/17 20:48 Antiembolic Devices [RC] .Routine Communication, Vaccine [RC] PER UNIT ROUTINE VTE/DVT Education [RC] PER UNIT ROUTINE Vaccines to be Administered [RC] PER UNIT ROUTINE MRSA BY PCR [MREF] Routine 12/23/17 20:53 Magnesium Oxide 400 mg PO QPM 12/23/17 20:54 Phenol [Chloraseptic Throat Garrison] 0 ml MUCMEM Q2H PRN 12/23/17 21:00 Pantoprazole [ProTONIX IV] 40 mg IVPUSH Q12H Sodium Chloride 0.9% [Saline Flush] 10 ml FLUSH Q12H 12/23/17 Dinner Regular Diet [DIET] 12/24/17 03:00 Ketorolac [Toradol] 15 mg IVPUSH Q6H PRN 12/24/17 05:11 LACTIC ACID [CHEM] Stat 12/24/17 08:00 Dextromethorphan/guaiFENesin [Mucinex DM ER 600-30 MG] 1 tab PO BID Gabapentin [Neurontin] 300 mg PO BID Sulfacetamide Sodium/Sulfur [Sulfacetamide-Sulfur 10-5% Crm] 1 dose TOP DAILY Valsartan [Diovan] 160 mg PO DAILY hydroCHLOROthiazide 25 mg PO DAILY metroNIDAZOLE [Metronidazole] 1 applic TOP BID 12/24/17 08:37 Acetaminophen [Tylenol] 650 mg PO Q4H PRN 12/24/17 08:41 Lactated Ringers [Ringers, Lactated] 1,000 ml IV ASDIRECTED 12/24/17 08:46 Communication Order [RC] ROUTINE 12/24/17 09:00 Vancomycin 1.5 gm Dextrose 5% in Water 500 ml IV Q12H 12/24/17 12:00 Potassium Chloride [Klor-Con M20] 20 meq PO TID 12/24/17 18:00 Azithromycin [Zithromax] 500 mg Sodium Chloride 0.9% [Normal Saline] 250 ml IV Q24H 12/24/17 20:00 Simvastatin [Zocor] 10 mg PO BEDTIME 12/25/17 18:00 amLODIPine [Norvasc] 10 mg PO QPM - Assessment Assessment:: As above - Plan Plan:: As above. Extensive precautions were given to the patient and his family as above, who is in agreement with the treatment plan.
[2017-12-24] MEDS: Potassium Chloride 20 MEQ Tab.ER PO SCH ×2 (13:10→18:18)
[2017-12-24] MEDS ORDERED: Azithromycin 500 MG in Sodium Chloride 0.9% 250 ML IV SCH (18:00)
[2017-12-24] MEDS: Magnesium Oxide 400 MG Tab PO SCH (18:19)
[2017-12-24] MEDS: Simvastatin 10 MG Tab PO SCH (21:00)
[2017-12-25] MEDS: Lactated Ringers 1,000 ML IV SCH ×2 (01:53→08:45)
[2017-12-25] MEDS: Acetaminophen 325 MG Tab PO PRN ×5 (02:21→21:37)
[2017-12-25] MEDS: Ketorolac 15 MG/ML SDV IVPUSH PRN (05:06)
[2017-12-25 07:52] LABS: CHLORIDE,CL 108 mmol/L (98-107); SODIUM,NA 143 mmol/L (136-145)
[2017-12-25] MEDS: Dextromethorphan/guaiFENesin 600-30 MG Tab.ER PO SCH ×2 (07:53→17:23)
[2017-12-25] MEDS: Hydrochlorothiazide 25 MG Tab PO SCH (07:54)
[2017-12-25] MEDS: Potassium Chloride 20 MEQ Tab.ER PO SCH ×3 (07:54→17:22)
[2017-12-25] MEDS: Gabapentin 300 MG Cap PO SCH ×2 (07:54→17:23)
[2017-12-25] MEDS: Pantoprazole 40 MG Vial IVPUSH SCH (08:03)
[2017-12-25] MEDS: Sodium Chloride 0.9% 10 ML Syringe FLUSH SCH ×2 (08:45→20:17)
[2017-12-25] MEDS: Vancomycin 1.5 GM in Dextrose 5% in Water 500 ML IV SCH ×2 (09:05)
--- NOTE | 2017-12-25 09:59 | PCM.PN ---
- General Info Date of Service: 12/25/17 Admission Dx/Problem (Free Text): 1. Tachycardia 2. Strep pharyngitis with suspected secondary sepsis Functional Status: Reports: Pain Controlled, Tolerating Diet - Review of Systems General: Reports: Fever, Weakness HEENT: Reports: Sore Throat, Other (right sided lymph node tender and swollen) Pulmonary: Reports: No Symptoms Cardiovascular: Reports: No Symptoms Gastrointestinal: Reports: No Symptoms Genitourinary: Reports: No Symptoms Musculoskeletal: Reports: No Symptoms Skin: Reports: No Symptoms Neurological: Reports: No Symptoms Psychiatric: Reports: No Symptoms - Patient Data Vitals - Most Recent: Last Vital Signs Temp 98.4 F 12/25/17 08:00 Pulse 67 12/25/17 08:00 Resp 16 12/25/17 08:00 BP 133/89 12/25/17 08:00 Pulse Ox 97 12/25/17 08:00 Weight - Most Recent: 267 lb 14.4 oz I&O - Last 24 Hours: Intake & Output 12/24/17 12/25/17 12/25/17 22:59 06:59 14:59 Intake Total 2374 2323 530 Output Total 1600 2000 350 Balance 774 323 180 Lab Results Last 24 Hours: Laboratory Results - last 24 hr 12/25/17 12/25/17 12/25/17 Range/Units 07:05 07:05 07:05 WBC 17.3 H (4.0-10.2) K/uL RBC 4.42 (4.33-5.41) M/uL Hgb 13.1 (13.1-16.8) g/dL Hct 38.9 L (39.0-49.0) % MCV 88.0 (84.0-98.0) fL MCH 29.6 (28.2-33.3) pg MCHC 33.7 (31.7-36.0) g/dL RDW 13.6 (11.2-14.1) % Plt Count 164 (150-350) K/uL Neut % (Auto) 77.6 (45.0-80.0) % Lymph % (Auto) 8.5 L (10.0-50.0) % [place] % (Auto) 13.0 (2.0-14.0) % Eos % (Auto) 0.8 (0.0-5.0) % Baso % (Auto) 0.1 (0.0-2.0) % Neut # (Auto) 13.45 H (1.40-7.00) K/uL Lymph # (Auto) 1.47 (0.50-3.50) K/uL [place] # (Auto) 2.26 H (0.00-1.00) K/uL Eos # (Auto) 0.14 (0.00-0.50) K/uL Baso # (Auto) 0.02 (0.00-0.20) K/uL Sodium 143 (136-145) mmol/L Potassium 3.5 (3.5-5.1) mmol/L Chloride 108 H (98-107) mmol/L Carbon Dioxide 26.5 (21.0-32.0) mmol/L BUN 11 (7-18) mg/dL Creatinine 0.79 (0.51-1.17) mg/dL Est Cr Clr Drug Dosing 115.98 mL/min Estimated GFR (MDRD) > 60 mL/min Glucose 114 H (74-106) mg/dL Lactic Acid 1.1 (0.4-2.0) mmol/L Calcium 8.2 L (8.5-10.1) mg/dL Magnesium 1.9 (1.8-2.4) mg/dL Total Bilirubin 0.5 (0.2-1.0) mg/dL AST 15 (15-37) U/L ALT 22 (12-78) U/L Alkaline Phosphatase 68 (46-116) IU/L C-Reactive Protein (<=0.9) mg/dL Total Protein 6.7 (6.4-8.2) g/dL Albumin 2.6 L (3.4-5.0) g/dL 12/25/17 Range/Units 07:05 WBC (4.0-10.2) K/uL RBC (4.33-5.41) M/uL Hgb (13.1-16.8) g/dL Hct (39.0-49.0) % MCV (84.0-98.0) fL MCH (28.2-33.3) pg MCHC (31.7-36.0) g/dL RDW (11.2-14.1) % Plt Count (150-350) K/uL Neut % (Auto) (45.0-80.0) % Lymph % (Auto) (10.0-50.0) % [place] % (Auto) (2.0-14.0) % Eos % (Auto) (0.0-5.0) % Baso % (Auto) (0.0-2.0) % Neut # (Auto) (1.40-7.00) K/uL Lymph # (Auto) (0.50-3.50) K/uL [place] # (Auto) (0.00-1.00) K/uL Eos # (Auto) (0.00-0.50) K/uL Baso # (Auto) (0.00-0.20) K/uL Sodium (136-145) mmol/L Potassium (3.5-5.1) mmol/L Chloride (98-107) mmol/L Carbon Dioxide (21.0-32.0) mmol/L BUN (7-18) mg/dL Creatinine (0.51-1.17) mg/dL Est Cr Clr Drug Dosing mL/min Estimated GFR (MDRD) mL/min Glucose (74-106) mg/dL Lactic Acid (0.4-2.0) mmol/L Calcium (8.5-10.1) mg/dL Magnesium (1.8-2.4) mg/dL Total Bilirubin (0.2-1.0) mg/dL AST (15-37) U/L ALT (12-78) U/L Alkaline Phosphatase (46-116) IU/L C-Reactive Protein 15.1 H (<=0.9) mg/dL Total Protein (6.4-8.2) g/dL Albumin (3.4-5.0) g/dL Loco Results Last 24 Hours: Microbiology 12/23/17 19:45 Aerobic Blood Culture - Preliminary Blood - Venous - Lab Draw NO GROWTH AFTER 1 DAY Anaerobic Blood Culture - Preliminary NO GROWTH AFTER 1 DAY 12/23/17 18:35 Aerobic Blood Culture - Preliminary Blood - Venous NO GROWTH AFTER 1 DAY Anaerobic Blood Culture - Preliminary NO GROWTH AFTER 1 DAY 12/24/17 09:30 Stool Occult Blood (LOCO) - Final Stool / Feces NEGATIVE OCCULT BLOOD Med Orders - Current: Current Medications Acetaminophen (Tylenol) 650 mg PO Q4H PRN PRN Reason: Pain (Mild 1-3)/fever Last Admin: 12/25/17 08:02 Dose: 650 mg Albuterol (Proventil Neb Soln) 2.5 mg NEB Q2H PRN PRN Reason: Dyspnea Albuterol/Ipratropium (Duoneb 3.0-0.5 Mg/3 Ml) 3 ml NEB Q4H PRN PRN Reason: Dyspnea Amlodipine Besylate (Norvasc) 10 mg PO QPM [facility] Gabapentin (Neurontin) 300 mg PO BID [facility] Last Admin: 12/25/17 07:54 Dose: 300 mg Guaifenesin/Dextromethorphan (Mucinex Dm Er 600-30 Mg) 1 tab PO BID [facility] Last Admin: 12/25/17 07:53 Dose: 1 tab Hydrochlorothiazide (Hydrochlorothiazide) 25 mg PO DAILY [facility] Last Admin: 12/25/17 07:54 Dose: 25 mg Azithromycin 500 mg/ Sodium (Chloride) 250 mls @ 250 mls/hr IV Q24H [facility] Last Admin: 12/24/17 18:19 Dose: 250 mls/hr Vancomycin HCl 1.5 gm/ (Dextrose/Water) 500 mls @ 220 mls/hr IV Q12H [facility] Last Admin: 12/25/17 09:05 Dose: 220 mls/hr Lactated Ringer's (Ringers, Lactated) 1,000 mls @ 150 mls/hr IV ASDIRECTED [facility] Last Admin: 12/25/17 08:45 Dose: 150 mls/hr Magnesium Oxide (Magnesium Oxide) 400 mg PO QPM [facility] Last Admin: 12/24/17 18:19 Dose: 400 mg Non-Formulary Medication (Metronidazole [Metronidazole]) 1 applic TOP BID [facility] Non-Formulary Medication (Sulfacetamide Sodium/Sulfur [Sulfacetamide-Sulfur 10-5 % Crm]) 1 dose TOP DAILY [facility] Pantoprazole Sodium (Protonix Iv) 40 mg IVPUSH Q12H [facility] Last Admin: 12/25/17 08:03 Dose: 40 mg Phenol/Menthol (Chloraseptic Throat [place]) 0 ml MUCMEM Q2H PRN PRN Reason: Sore Throat Potassium Chloride (Klor-Con M20) 20 meq PO TID [facility] Last Admin: 12/25/17 07:54 Dose: 20 meq Simvastatin (Zocor) 10 mg PO BEDTIME [facility] Last Admin: 12/24/17 21:00 Dose: 10 mg Sodium Chloride (Saline Flush) 10 ml FLUSH ASDIRECTED PRN PRN Reason: Keep Vein Open Last Admin: 12/24/17 16:03 Dose: 10 ml Sodium Chloride (Saline Flush) 10 ml FLUSH ASDIRECTED PRN PRN Reason: Keep Vein Open Sodium Chloride (Saline Flush) 10 ml FLUSH Q12H [facility] Last Admin: 12/24/17 21:01 Dose: 10 ml Temazepam (Restoril) 15 mg PO BEDTIME PRN PRN Reason: Insomnia Last Admin: 12/24/17 22:17 Dose: 15 mg Valsartan (Diovan) 160 mg PO DAILY [facility] Last Admin: 12/25/17 07:53 Dose: 160 mg Discontinued Medications Amlodipine Besylate (Norvasc) 10 mg PO DAILY [facility] Last Admin: 12/24/17 10:41 Dose: Not Given Azithromycin 500 mg/ Sodium (Chloride) 250 mls @ 250 mls/hr IV Q24H [facility] Last Admin: 12/23/17 19:47 Dose: 250 mls/hr Vancomycin HCl 1 gm/ Sodium (Chloride) 250 mls @ 250 mls/hr IV Q24H [facility] Last Admin: 12/23/17 19:06 Dose: 250 mls/hr Lactated Ringer's (Ringers, Lactated) 1,000 mls @ 999 mls/hr IV .BOLUS ONE Stop: 12/23/17 19:41 Last Admin: 12/23/17 18:46 Dose: 999 mls/hr Lactated Ringer's (Ringers, Lactated) 1,000 mls @ 999 mls/hr IV ONETIME ONE Stop: 12/23/17 21:52 Last Admin: 12/23/17 21:32 Dose: 999 mls/hr Lactated Ringer's (Ringers, Lactated) 1,000 mls @ 125 mls/hr IV ASDIRECTED [facility] Last Admin: 12/24/17 07:12 Dose: 125 mls/hr Lactated Ringer's (Ringers, Lactated) 1,000 mls @ 999 mls/hr IV .BOLUS ONE Stop: 12/24/17 09:39 Last Admin: 12/24/17 10:41 Dose: Not Given Ketorolac Tromethamine (Toradol) 30 mg IVPUSH ONETIME ONE Stop: 12/23/17 20:51 Last Admin: 12/23/17 21:32 Dose: 30 mg Ketorolac Tromethamine (Toradol) 15 mg IVPUSH Q6H PRN PRN Reason: Fever Greater Than 102 Stop: 12/28/17 20:51 Ketorolac Tromethamine (Toradol) 15 mg IVPUSH Q6H PRN PRN Reason: Fever Greater Than 102 Stop: 12/25/17 08:00 Last Admin: 12/25/17 05:06 Dose: 15 mg Potassium Chloride (Klor-Con M20) 20 meq PO DAILY [facility] Last Admin: 12/24/17 08:28 Dose: 20 meq - Exam Quality Assessment: DVT Prophylaxis General: Alert, Oriented, Cooperative, No Acute Distress HEENT: Pupils Equal, Pupils Reactive, EOMI, Mucous Membr. Moist/[place] Neck: Supple, Lymphadenopathy Lungs: Clear to Auscultation, Normal Respiratory Effort Cardiovascular: Regular Rate, Regular Rhythm, No Murmurs GI/Abdominal Exam: Normal Bowel Sounds, Soft, Non-Tender, No Organomegaly, No Distention Back Exam: Normal Inspection Extremities: Normal Inspection, Normal Range of Motion, Non-Tender, No Pedal Edema, Normal Capillary Refill Peripheral Pulses: 1+: Dorsalis Pedis (L), Dorsalis Pedis (R) Skin: Warm, Dry, Intact Neurological: No New Focal Deficit Psy/Mental Status: Alert, Normal Affect, Normal Mood - Problem List Review Problem List Initiated/Reviewed/Updated: Yes - My Orders Last 24 Hours: My Active Orders 12/25/17 09:30 Soft Tissue Neck w wo Cont [CT] Routine 12/25/17 09:52 UA W/MICROSCOPIC [URIN] Routine - Assessment Assessment:: As above - Plan Plan:: As above. Extensive precautions were given to the patient and his family as above, who is in agreement with the treatment plan. 12/25/2017 Patient is feeling some better. WBC continues to be elevated and staying around 17,000. Patient's labs reviewed with him and his . On vanco and Zithromax. Patient has allergy to PCN in form of rash. Will discuss with Dr Flynn in regards to antibiotics, final blood cultures pending. Patient has swollen lymph node on right side of neck which he feels is more tender and slightly bigger. Ordered CT scan of neck to rule out abscess. Patient denies any dental pain. Last fever was 2200. Will continue with current treatment plan, recheck labs in the morning. Patient is clinically improving at this time. Paty Andrews,PLASTIC MANAGER
[2017-12-25] MEDS ORDERED: Iopamidol 612 MG/ML 100 ML Bottle IVPUSH ONE (10:32)
[2017-12-25] MEDS ORDERED: Sodium Chloride 0.9% 10 ML Syringe FLUSH PRN (11:15)
[2017-12-25] MEDS ORDERED: cefTRIAXone 1 GM Vial IVPUSH ONE (13:30)
[2017-12-25] MEDS: Sodium Chloride 0.9% 10 ML Syringe FLUSH PRN (14:08)
[2017-12-25] MEDS: Magnesium Oxide 400 MG Tab PO SCH (17:22)
[2017-12-25] MEDS ORDERED: amLODIPine 5 MG Tab PO SCH (18:00)
[2017-12-25] MEDS ORDERED: cefTRIAXone 1 GM Vial IVPUSH SCH (20:00)
[2017-12-25] MEDS: Simvastatin 10 MG Tab PO SCH (20:18)
[2017-12-25] MEDS ORDERED: fentaNYL 100 MCG/2 ML SDV IVPUSH PRN (20:18)
[2017-12-25] MEDS: Ketorolac 15 MG/ML SDV IVPUSH SCH (21:10)
[2017-12-25] MEDS: cefTRIAXone 1 GM in Sodium Chloride 0.9% 100 ML IV SCH (21:37)
[2017-12-26] MEDS: Ketorolac 15 MG/ML SDV IVPUSH SCH ×4 (02:18→20:05)
[2017-12-26] MEDS: Acetaminophen 325 MG Tab PO PRN (04:46)
[2017-12-26 08:03] LABS: CHLORIDE,CL 107 mmol/L (98-107); SODIUM,NA 142 mmol/L (136-145)
[2017-12-26] MEDS: Pantoprazole 40 MG Vial IVPUSH SCH (08:21)
[2017-12-26] MEDS: Gabapentin 300 MG Cap PO SCH ×2 (08:21→17:31)
[2017-12-26] MEDS: Potassium Chloride 20 MEQ Tab.ER PO SCH ×2 (08:21→17:31)
[2017-12-26] MEDS: Sodium Chloride 0.9% 10 ML Syringe FLUSH SCH ×2 (08:22→20:05)
[2017-12-26] MEDS: Hydrochlorothiazide 25 MG Tab PO SCH (08:22)
[2017-12-26] MEDS: cefTRIAXone 1 GM in Sodium Chloride 0.9% 100 ML IV SCH ×2 (08:23→20:06)
[2017-12-26] MEDS ORDERED: traMADol 50 MG Tab PO PRN (10:00)
--- NOTE | 2017-12-26 10:03 | PCM.PN ---
- General Info Date of Service: 12/26/17 Admission Dx/Problem (Free Text): 1. Tachycardia 2. Strep pharyngitis with suspected secondary sepsis Functional Status: Reports: Pain Controlled (sore throat some better but requiring pain medication) - Review of Systems General: Reports: Weakness HEENT: Reports: Sore Throat Pulmonary: Reports: No Symptoms Cardiovascular: Reports: No Symptoms Gastrointestinal: Reports: No Symptoms Genitourinary: Reports: No Symptoms Musculoskeletal: Reports: No Symptoms Skin: Reports: No Symptoms Neurological: Reports: No Symptoms Psychiatric: Reports: No Symptoms - Patient Data Vitals - Most Recent: Last Vital Signs Temp 98.4 F 12/26/17 08:00 Pulse 72 12/26/17 08:00 Resp 15 12/26/17 08:00 BP 140/82 12/26/17 08:22 Pulse Ox 95 12/26/17 08:00 Weight - Most Recent: 267 lb 14.386 oz I&O - Last 24 Hours: Intake & Output 12/25/17 12/26/17 12/26/17 22:59 06:59 14:59 Intake Total 2560 600 Output Total 1650 2400 Balance 910 -1800 Lab Results Last 24 Hours: Laboratory Results - last 24 hr 12/24/17 12/25/17 12/26/17 Range/Units 07:30 09:30 07:00 WBC 9.0 (4.0-10.2) K/uL RBC 4.66 (4.33-5.41) M/uL Hgb 13.6 (13.1-16.8) g/dL Hct 40.6 (39.0-49.0) % MCV 87.1 (84.0-98.0) fL MCH 29.2 (28.2-33.3) pg MCHC 33.5 (31.7-36.0) g/dL RDW 13.6 (11.2-14.1) % Plt Count 177 (150-350) K/uL Neut % (Auto) 67.1 (45.0-80.0) % Lymph % (Auto) 17.3 (10.0-50.0) % [place] % (Auto) 12.4 (2.0-14.0) % Eos % (Auto) 3.0 (0.0-5.0) % Baso % (Auto) 0.2 (0.0-2.0) % Neut # (Auto) 6.06 (1.40-7.00) K/uL Lymph # (Auto) 1.56 (0.50-3.50) K/uL [place] # (Auto) 1.12 H (0.00-1.00) K/uL Eos # (Auto) 0.27 (0.00-0.50) K/uL Baso # (Auto) 0.02 (0.00-0.20) K/uL Sodium (136-145) mmol/L Potassium (3.5-5.1) mmol/L Chloride (98-107) mmol/L Carbon Dioxide (21.0-32.0) mmol/L BUN (7-18) mg/dL Creatinine (0.51-1.17) mg/dL Est Cr Clr Drug Dosing mL/min Estimated GFR (MDRD) mL/min Glucose (74-106) mg/dL Calcium (8.5-10.1) mg/dL Total Bilirubin (0.2-1.0) mg/dL AST (15-37) U/L ALT (12-78) U/L Alkaline Phosphatase (46-116) IU/L C-Reactive Protein 12.0 H (<=0.9) mg/dL Total Protein (6.4-8.2) g/dL Albumin (3.4-5.0) g/dL Specimen Type Urinvoid Urine Color Dark yellow Urine Appearance Clear Urine pH 7.5 (5.0-9.0) Ur Specific [place] 1.020 (1.005-1.030) Urine Protein 30 H (NEGATIVE) mg/dL Urine Glucose (UA) Negative (NEGATIVE) mg/dL Urine Ketones Negative (NEGATIVE) mg/dL Urine Occult Blood Trace-intact H (NEGATIVE) Urine Nitrite Negative (NEGATIVE) Urine Bilirubin Small H (NEGATIVE) Urine Urobilinogen 4.0 H (0.2-1.0) E.U./dL Ur Leukocyte Esterase Negative (NEGATIVE) Urine RBC 0-5 /HPF Urine WBC 0-5 /HPF Ur Epithelial Cells Rare /LPF Urine Bacteria Rare (NONE TO FEW) /HPF 12/26/17 Range/Units 07:00 WBC (4.0-10.2) K/uL RBC (4.33-5.41) M/uL Hgb (13.1-16.8) g/dL Hct (39.0-49.0) % MCV (84.0-98.0) fL MCH (28.2-33.3) pg MCHC (31.7-36.0) g/dL RDW (11.2-14.1) % Plt Count (150-350) K/uL Neut % (Auto) (45.0-80.0) % Lymph % (Auto) (10.0-50.0) % [place] % (Auto) (2.0-14.0) % Eos % (Auto) (0.0-5.0) % Baso % (Auto) (0.0-2.0) % Neut # (Auto) (1.40-7.00) K/uL Lymph # (Auto) (0.50-3.50) K/uL [place] # (Auto) (0.00-1.00) K/uL Eos # (Auto) (0.00-0.50) K/uL Baso # (Auto) (0.00-0.20) K/uL Sodium 142 (136-145) mmol/L Potassium 3.7 (3.5-5.1) mmol/L Chloride 107 (98-107) mmol/L Carbon Dioxide 26.2 (21.0-32.0) mmol/L BUN 10 (7-18) mg/dL Creatinine 0.75 (0.51-1.17) mg/dL Est Cr Clr Drug Dosing 122.11 mL/min Estimated GFR (MDRD) > 60 mL/min Glucose 117 H (74-106) mg/dL Calcium 8.7 (8.5-10.1) mg/dL Total Bilirubin 0.3 (0.2-1.0) mg/dL AST 17 (15-37) U/L ALT 28 (12-78) U/L Alkaline Phosphatase 72 (46-116) IU/L C-Reactive Protein 11.3 H (<=0.9) mg/dL Total Protein 7.3 (6.4-8.2) g/dL Albumin 2.7 L (3.4-5.0) g/dL Specimen Type Urine Color Urine Appearance Urine pH (5.0-9.0) Ur Specific [place] (1.005-1.030) Urine Protein (NEGATIVE) mg/dL Urine Glucose (UA) (NEGATIVE) mg/dL Urine Ketones (NEGATIVE) mg/dL Urine Occult Blood (NEGATIVE) Urine Nitrite (NEGATIVE) Urine Bilirubin (NEGATIVE) Urine Urobilinogen (0.2-1.0) E.U./dL Ur Leukocyte Esterase (NEGATIVE) Urine RBC /HPF Urine WBC /HPF Ur Epithelial Cells /LPF Urine Bacteria (NONE TO FEW) /HPF Loco Results Last 24 Hours: Microbiology 12/23/17 19:45 Aerobic Blood Culture - Preliminary Blood - Venous - Lab Draw NO GROWTH AFTER 2 DAYS Anaerobic Blood Culture - Preliminary NO GROWTH AFTER 2 DAYS 12/23/17 18:35 Aerobic Blood Culture - Preliminary Blood - Venous NO GROWTH AFTER 2 DAYS Anaerobic Blood Culture - Preliminary NO GROWTH AFTER 2 DAYS Med Orders - Current: Current Medications Acetaminophen (Tylenol) 650 mg PO Q4H PRN PRN Reason: Pain (Mild 1-3)/fever Last Admin: 12/26/17 04:46 Dose: 650 mg Albuterol (Proventil Neb Soln) 2.5 mg NEB Q2H PRN PRN Reason: Dyspnea Albuterol/Ipratropium (Duoneb 3.0-0.5 Mg/3 Ml) 3 ml NEB Q4H PRN PRN Reason: Dyspnea Amlodipine Besylate (Norvasc) 5 mg PO QPM [facility] Fentanyl (Sublimaze) 50 mcg IVPUSH Q4H PRN PRN Reason: Pain Gabapentin (Neurontin) 300 mg PO BID [facility] Last Admin: 12/26/17 08:21 Dose: 300 mg Hydrochlorothiazide (Hydrochlorothiazide) 25 mg PO DAILY [facility] Last Admin: 12/26/17 08:22 Dose: 25 mg Ceftriaxone Sodium 1 gm/ (Sodium Chloride) 100 mls @ 200 mls/hr IV Q12H [facility] Last Admin: 12/26/17 08:23 Dose: 200 mls/hr Ketorolac Tromethamine (Toradol) 15 mg IVPUSH Q6H [facility] Stop: 12/30/17 20:05 Last Admin: 12/26/17 08:22 Dose: 15 mg Magnesium Oxide (Magnesium Oxide) 400 mg PO QPM [facility] Last Admin: 12/25/17 17:22 Dose: 400 mg Non-Formulary Medication (Metronidazole [Metronidazole]) 1 applic TOP BID [facility] Non-Formulary Medication (Sulfacetamide Sodium/Sulfur [Sulfacetamide-Sulfur 10-5 % Crm]) 1 dose TOP DAILY [facility] Pantoprazole Sodium (Protonix Iv) 40 mg IVPUSH DAILY [facility] Last Admin: 12/26/17 08:21 Dose: 40 mg Phenol/Menthol (Chloraseptic Throat [place]) 0 ml MUCMEM Q2H PRN PRN Reason: Sore Throat Potassium Chloride (Klor-Con M20) 10 meq PO BID [facility] Last Admin: 12/26/17 08:21 Dose: 10 meq Simvastatin (Zocor) 10 mg PO BEDTIME [facility] Last Admin: 12/25/17 20:18 Dose: 10 mg Sodium Chloride (Saline Flush) 10 ml FLUSH ASDIRECTED PRN PRN Reason: Keep Vein Open Last Admin: 12/25/17 14:08 Dose: 10 ml Sodium Chloride (Saline Flush) 10 ml FLUSH ASDIRECTED PRN PRN Reason: Keep Vein Open Sodium Chloride (Saline Flush) 10 ml FLUSH Q12HR [facility] Last Admin: 12/26/17 08:22 Dose: 10 ml Tramadol HCl (Ultram) 50 mg PO Q6H PRN PRN Reason: Sore Throat Valsartan (Diovan) 80 mg PO DAILY [facility] Last Admin: 12/26/17 08:22 Dose: 80 mg Discontinued Medications Amlodipine Besylate (Norvasc) 10 mg PO DAILY [facility] Last Admin: 12/24/17 10:41 Dose: Not Given Amlodipine Besylate (Norvasc) 10 mg PO QPM [facility] Last Admin: 12/25/17 17:22 Dose: 10 mg Ceftriaxone Sodium (Rocephin) 1 gm IVPUSH Q12HR [facility] Last Admin: 12/25/17 20:15 Dose: 1 gm Ceftriaxone Sodium (Rocephin) 1 gm IVPUSH ONETIME ONE Stop: 12/25/17 13:31 Last Admin: 12/25/17 14:08 Dose: 1 gm Guaifenesin/Dextromethorphan (Mucinex Dm Er 600-30 Mg) 1 tab PO BID [facility] Last Admin: 12/25/17 17:23 Dose: 1 tab Azithromycin 500 mg/ Sodium (Chloride) 250 mls @ 250 mls/hr IV Q24H [facility] Last Admin: 12/23/17 19:47 Dose: 250 mls/hr Vancomycin HCl 1 gm/ Sodium (Chloride) 250 mls @ 250 mls/hr IV Q24H [facility] Last Admin: 12/23/17 19:06 Dose: 250 mls/hr Lactated Ringer's (Ringers, Lactated) 1,000 mls @ 999 mls/hr IV .BOLUS ONE Stop: 12/23/17 19:41 Last Admin: 12/23/17 18:46 Dose: 999 mls/hr Lactated Ringer's (Ringers, Lactated) 1,000 mls @ 999 mls/hr IV ONETIME ONE Stop: 12/23/17 21:52 Last Admin: 12/23/17 21:32 Dose: 999 mls/hr Lactated Ringer's (Ringers, Lactated) 1,000 mls @ 125 mls/hr IV ASDIRECTED [facility] Last Admin: 12/24/17 07:12 Dose: 125 mls/hr Azithromycin 500 mg/ Sodium (Chloride) 250 mls @ 250 mls/hr IV Q24H [facility] Last Admin: 12/24/17 18:19 Dose: 250 mls/hr Vancomycin HCl 1.5 gm/ (Dextrose/Water) 500 mls @ 220 mls/hr IV Q12H [facility] Last Admin: 12/25/17 09:05 Dose: 220 mls/hr Lactated Ringer's (Ringers, Lactated) 1,000 mls @ 999 mls/hr IV .BOLUS ONE Stop: 12/24/17 09:39 Last Admin: 12/24/17 10:41 Dose: Not Given Lactated Ringer's (Ringers, Lactated) 1,000 mls @ 150 mls/hr IV ASDIRECTED [facility] Last Admin: 12/25/17 08:45 Dose: 150 mls/hr Iopamidol (Isovue-300 (61%)) 100 ml IVPUSH ONETIME ONE Stop: 12/25/17 10:33 Last Admin: 12/25/17 13:12 Dose: 100 ml Ketorolac Tromethamine (Toradol) 30 mg IVPUSH ONETIME ONE Stop: 12/23/17 20:51 Last Admin: 12/23/17 21:32 Dose: 30 mg Ketorolac Tromethamine (Toradol) 15 mg IVPUSH Q6H PRN PRN Reason: Fever Greater Than 102 Stop: 12/28/17 20:51 Ketorolac Tromethamine (Toradol) 15 mg IVPUSH Q6H PRN PRN Reason: Fever Greater Than 102 Stop: 12/25/17 08:00 Last Admin: 12/25/17 05:06 Dose: 15 mg Pantoprazole Sodium (Protonix Iv) 40 mg IVPUSH Q12H [facility] Last Admin: 12/25/17 08:03 Dose: 40 mg Potassium Chloride (Klor-Con M20) 20 meq PO DAILY [facility] Last Admin: 12/24/17 08:28 Dose: 20 meq Potassium Chloride (Klor-Con M20) 20 meq PO TID [facility] Last Admin: 12/25/17 17:22 Dose: 20 meq Sodium Chloride (Saline Flush) 10 ml FLUSH Q12H [facility] Last Admin: 12/25/17 08:45 Dose: 10 ml Sodium Chloride (Saline Flush) 10 ml FLUSH ONETIME PRN PRN Reason: Keep Vein Open Stop: 12/25/17 14:00 Temazepam (Restoril) 15 mg PO BEDTIME PRN PRN Reason: Insomnia Last Admin: 12/24/17 22:17 Dose: 15 mg Valsartan (Diovan) 160 mg PO DAILY [facility] Last Admin: 12/25/17 07:53 Dose: 160 mg - Exam General: Alert, Oriented, Cooperative, No Acute Distress HEENT: Pupils Equal, Pupils Reactive, EOMI, Mucous Membr. Moist/[place] Neck: Lymphadenopathy Lungs: Clear to Auscultation, Normal Respiratory Effort Cardiovascular: Regular Rate, Regular Rhythm GI/Abdominal Exam: Normal Bowel Sounds, Soft, Non-Tender, No Organomegaly Peripheral Pulses: 1+: Dorsalis Pedis (L), Dorsalis Pedis (R) Skin: Warm, Dry, Intact Neurological: No New Focal Deficit Psy/Mental Status: Alert, Normal Affect, Normal Mood - Problem List Review Problem List Initiated/Reviewed/Updated: Yes - My Orders Last 24 Hours: My Active Orders 12/25/17 09:30 Soft Tissue Neck w Cont [CT] Routine 12/26/17 09:16 Communication Order [RC] ROUTINE 12/26/17 09:52 traMADol [Ultram] 50 mg PO Q6H PRN - Assessment Assessment:: As above - Plan Plan:: As above. Extensive precautions were given to the patient and his family as above, who is in agreement with the treatment plan. 12/25/2017 Patient is feeling some better. WBC continues to be elevated and staying around 17,000. Patient's labs reviewed with him and his . On vanco and Zithromax. Patient has allergy to PCN in form of rash. Will discuss with Dr Flynn in regards to antibiotics, final blood cultures pending. Patient has swollen lymph node on right side of neck which he feels is more tender and slightly bigger. Ordered CT scan of neck to rule out abscess. Patient denies any dental pain. Last fever was 2200. Will continue with current treatment plan, recheck labs in the morning. Patient is clinically improving at this time. Paty Andrews CNP 12/26/2017 Patient is feeling better, consulted with ID Dr Gamez at [place] yesterday recommended starting IV Rocephin if no abscess on neck CT scan. Started Rocephin , stopped vanco and zithromax. WBC much improved, ct scan abnormal and reviewed with the patent and . Patient and verbalized understanding and no further questions. Will refer to ENT. Will discuss case with Dr Flynn. Ordered oral pain medication to see if pain can be managed with oral meds. Paty Andrews CNP
[2017-12-26] MEDS: Sodium Chloride 0.9% 10 ML Syringe FLUSH PRN (15:18)
[2017-12-26] MEDS: Magnesium Oxide 400 MG Tab PO SCH (17:31)
[2017-12-26] MEDS ORDERED: amLODIPine 5 MG Tab PO SCH (18:00)
[2017-12-26] MEDS: Simvastatin 10 MG Tab PO SCH (20:05)
[2017-12-27] MEDS: Ketorolac 15 MG/ML SDV IVPUSH SCH ×2 (02:06→07:57)
[2017-12-27] MEDS: Acetaminophen 325 MG Tab PO PRN (03:46)
[2017-12-27 07:35] LABS: CHLORIDE,CL 106 mmol/L (98-107); SODIUM,NA 142 mmol/L (136-145)
[2017-12-27] MEDS: Potassium Chloride 20 MEQ Tab.ER PO SCH (07:56)
[2017-12-27] MEDS: Gabapentin 300 MG Cap PO SCH (07:56)
[2017-12-27] MEDS: Hydrochlorothiazide 25 MG Tab PO SCH (07:57)
[2017-12-27] MEDS: Pantoprazole 40 MG Vial IVPUSH SCH (07:58)
[2017-12-27] MEDS: cefTRIAXone 1 GM in Sodium Chloride 0.9% 100 ML IV SCH (07:59)
[2017-12-27] MEDS: Sodium Chloride 0.9% 10 ML Syringe FLUSH SCH (07:59)
[2017-12-27] MEDS: Sodium Chloride 0.9% 10 ML Syringe FLUSH PRN ×4 (07:59→12:21)
[2017-12-27] MEDS ORDERED: cefTRIAXone 1 GM in Sodium Chloride 0.9% 100 ML IV ONE (12:00)
[2017-12-27 12:58] VITALS: BP 141/71
--- NOTE | 2017-12-28 10:56 | PCM.PN ---
- General Info Date of Service: 12/27/17 Admission Dx/Problem (Free Text): 1. Tachycardia 2. Strep pharyngitis with suspected secondary sepsis Functional Status: Reports: Pain Controlled - Review of Systems General: Reports: No Symptoms HEENT: Reports: No Symptoms Pulmonary: Reports: No Symptoms Cardiovascular: Reports: No Symptoms Gastrointestinal: Reports: No Symptoms Genitourinary: Reports: No Symptoms Musculoskeletal: Reports: No Symptoms Skin: Reports: No Symptoms Neurological: Reports: No Symptoms Psychiatric: Reports: No Symptoms - Patient Data Vitals - Most Recent: Last Vital Signs Temp 97.5 F 12/27/17 12:00 Pulse 62 12/27/17 12:00 Resp 16 12/27/17 12:00 BP 141/71 H 12/27/17 12:00 Pulse Ox 95 12/27/17 12:00 Weight - Most Recent: 295 lb 14.4 oz Loco Results Last 24 Hours: Microbiology 12/23/17 19:45 Aerobic Blood Culture - Preliminary Blood - Venous - Lab Draw NO GROWTH AFTER 4 DAYS Anaerobic Blood Culture - Preliminary NO GROWTH AFTER 4 DAYS 12/23/17 18:35 Aerobic Blood Culture - Preliminary Blood - Venous NO GROWTH AFTER 4 DAYS Anaerobic Blood Culture - Preliminary NO GROWTH AFTER 4 DAYS Med Orders - Current: Current Medications Discontinued Medications Acetaminophen (Tylenol) 650 mg PO Q4H PRN PRN Reason: Pain (Mild 1-3)/fever Last Admin: 12/27/17 03:46 Dose: 650 mg Albuterol (Proventil Neb Soln) 2.5 mg NEB Q2H PRN PRN Reason: Dyspnea Albuterol/Ipratropium (Duoneb 3.0-0.5 Mg/3 Ml) 3 ml NEB Q4H PRN PRN Reason: Dyspnea Amlodipine Besylate (Norvasc) 10 mg PO DAILY [facility] Last Admin: 12/24/17 10:41 Dose: Not Given Amlodipine Besylate (Norvasc) 10 mg PO QPM [facility] Last Admin: 12/25/17 17:22 Dose: 10 mg Amlodipine Besylate (Norvasc) 5 mg PO QPM [facility] Last Admin: 12/26/17 17:31 Dose: 5 mg Ceftriaxone Sodium (Rocephin) 1 gm IVPUSH Q12HR [facility] Last Admin: 12/25/17 20:15 Dose: 1 gm Ceftriaxone Sodium (Rocephin) 1 gm IVPUSH ONETIME ONE Stop: 12/25/17 13:31 Last Admin: 12/25/17 14:08 Dose: 1 gm Fentanyl (Sublimaze) 50 mcg IVPUSH Q4H PRN PRN Reason: Pain Gabapentin (Neurontin) 300 mg PO BID [facility] Last Admin: 12/27/17 07:56 Dose: 300 mg Guaifenesin/Dextromethorphan (Mucinex Dm Er 600-30 Mg) 1 tab PO BID [facility] Last Admin: 12/25/17 17:23 Dose: 1 tab Hydrochlorothiazide (Hydrochlorothiazide) 25 mg PO DAILY [facility] Last Admin: 12/27/17 07:57 Dose: 25 mg Azithromycin 500 mg/ Sodium (Chloride) 250 mls @ 250 mls/hr IV Q24H [facility] Last Admin: 12/23/17 19:47 Dose: 250 mls/hr Vancomycin HCl 1 gm/ Sodium (Chloride) 250 mls @ 250 mls/hr IV Q24H [facility] Last Admin: 12/23/17 19:06 Dose: 250 mls/hr Lactated Ringer's (Ringers, Lactated) 1,000 mls @ 999 mls/hr IV .BOLUS ONE Stop: 12/23/17 19:41 Last Admin: 12/23/17 18:46 Dose: 999 mls/hr Lactated Ringer's (Ringers, Lactated) 1,000 mls @ 999 mls/hr IV ONETIME ONE Stop: 12/23/17 21:52 Last Admin: 12/23/17 21:32 Dose: 999 mls/hr Lactated Ringer's (Ringers, Lactated) 1,000 mls @ 125 mls/hr IV ASDIRECTED [facility] Last Admin: 12/24/17 07:12 Dose: 125 mls/hr Azithromycin 500 mg/ Sodium (Chloride) 250 mls @ 250 mls/hr IV Q24H [facility] Last Admin: 12/24/17 18:19 Dose: 250 mls/hr Vancomycin HCl 1.5 gm/ (Dextrose/Water) 500 mls @ 220 mls/hr IV Q12H [facility] Last Admin: 12/25/17 09:05 Dose: 220 mls/hr Lactated Ringer's (Ringers, Lactated) 1,000 mls @ 999 mls/hr IV .BOLUS ONE Stop: 12/24/17 09:39 Last Admin: 12/24/17 10:41 Dose: Not Given Lactated Ringer's (Ringers, Lactated) 1,000 mls @ 150 mls/hr IV ASDIRECTED [facility] Last Admin: 12/25/17 08:45 Dose: 150 mls/hr Ceftriaxone Sodium 1 gm/ (Sodium Chloride) 100 mls @ 200 mls/hr IV Q12H [facility] Last Admin: 12/27/17 07:59 Dose: 200 mls/hr Ceftriaxone Sodium 1 gm/ (Sodium Chloride) 100 mls @ 200 mls/hr IV ONETIME ONE Stop: 12/27/17 12:29 Last Admin: 12/27/17 12:18 Dose: 200 mls/hr Iopamidol (Isovue-300 (61%)) 100 ml IVPUSH ONETIME ONE Stop: 12/25/17 10:33 Last Admin: 12/25/17 13:12 Dose: 100 ml Ketorolac Tromethamine (Toradol) 30 mg IVPUSH ONETIME ONE Stop: 12/23/17 20:51 Last Admin: 12/23/17 21:32 Dose: 30 mg Ketorolac Tromethamine (Toradol) 15 mg IVPUSH Q6H PRN PRN Reason: Fever Greater Than 102 Stop: 12/28/17 20:51 Ketorolac Tromethamine (Toradol) 15 mg IVPUSH Q6H PRN PRN Reason: Fever Greater Than 102 Stop: 12/25/17 08:00 Last Admin: 12/25/17 05:06 Dose: 15 mg Ketorolac Tromethamine (Toradol) 15 mg IVPUSH Q6H [facility] Stop: 12/30/17 20:05 Last Admin: 12/27/17 07:57 Dose: 15 mg Magnesium Oxide (Magnesium Oxide) 400 mg PO QPM [facility] Last Admin: 12/26/17 17:31 Dose: 400 mg Non-Formulary Medication (Metronidazole [Metronidazole]) 1 applic TOP BID [facility] Non-Formulary Medication (Sulfacetamide Sodium/Sulfur [Sulfacetamide-Sulfur 10-5 % Crm]) 1 dose TOP DAILY [facility] Pantoprazole Sodium (Protonix Iv) 40 mg IVPUSH Q12H [facility] Last Admin: 12/25/17 08:03 Dose: 40 mg Pantoprazole Sodium (Protonix Iv) 40 mg IVPUSH DAILY [facility] Last Admin: 12/27/17 07:58 Dose: 40 mg Phenol/Menthol (Chloraseptic Throat [place]) 0 ml MUCMEM Q2H PRN PRN Reason: Sore Throat Potassium Chloride (Klor-Con M20) 20 meq PO DAILY [facility] Last Admin: 12/24/17 08:28 Dose: 20 meq Potassium Chloride (Klor-Con M20) 20 meq PO TID [facility] Last Admin: 12/25/17 17:22 Dose: 20 meq Potassium Chloride (Klor-Con M20) 10 meq PO BID [facility] Last Admin: 12/27/17 07:56 Dose: 10 meq Simvastatin (Zocor) 10 mg PO BEDTIME [facility] Last Admin: 12/26/17 20:05 Dose: 10 mg Sodium Chloride (Saline Flush) 10 ml FLUSH ASDIRECTED PRN PRN Reason: Keep Vein Open Last Admin: 12/27/17 12:21 Dose: 10 ml Sodium Chloride (Saline Flush) 10 ml FLUSH ASDIRECTED PRN PRN Reason: Keep Vein Open Sodium Chloride (Saline Flush) 10 ml FLUSH Q12H [facility] Last Admin: 12/25/17 08:45 Dose: 10 ml Sodium Chloride (Saline Flush) 10 ml FLUSH ONETIME PRN PRN Reason: Keep Vein Open Stop: 12/25/17 14:00 Sodium Chloride (Saline Flush) 10 ml FLUSH Q12HR [facility] Last Admin: 12/27/17 07:59 Dose: 10 ml Temazepam (Restoril) 15 mg PO BEDTIME PRN PRN Reason: Insomnia Last Admin: 12/24/17 22:17 Dose: 15 mg Tramadol HCl (Ultram) 50 mg PO Q6H PRN PRN Reason: Sore Throat Last Admin: 12/26/17 22:11 Dose: 50 mg Valsartan (Diovan) 160 mg PO DAILY [facility] Last Admin: 12/25/17 07:53 Dose: 160 mg Valsartan (Diovan) 80 mg PO DAILY [facility] Last Admin: 12/27/17 07:56 Dose: 80 mg - Exam General: Alert, Cooperative, No Acute Distress HEENT: Mucous Membr. Moist/[place], Other (right tonsilar fossa decrease in swelling and decrease in white exuacate, apthous ulcer noted) Neck: Trachea Midline, No JVD Lungs: Clear to Auscultation, Normal Respiratory Effort Cardiovascular: Regular Rate, Regular Rhythm GI/Abdominal Exam: Soft, Non-Tender, No Distention (Male) Exam: Deferred Back Exam: Normal Inspection Extremities: Normal Inspection, No Pedal Edema Skin: Warm, Dry, Intact Neurological: No New Focal Deficit Psy/Mental Status: Alert, Normal Affect, Normal Mood - Problem List & Annotations (1) Strep pharyngitis SNOMED Code(s): 52194055 Code(s): J02.0 - STREPTOCOCCAL PHARYNGITIS Status: Acute Priority: High Onset Date: 12/23/17 Annotation/Comment:: Note persistent fevers and leukocytosis this morning with increase of his vancomycin therapy to 1.5 g IV every 12 hours started this morning per recommendations from pharmacy. Tachycardia has resolved with stable blood pressures. Continue every 2 hours vitals and telemetry for now. Positive strep screen on admission with strong suspicion of probable secondary sepsis especially in light of his high fever, tachycardia, and leukocytosis. Sepsis protocol initiated in the emergency room, including initiation of aggressive IV vancomycin therapy and additional IV Zithromax during this hospitalization. Note previous allergy to Augmentin. Blood cultures 2 were collected with results still pending. Additional UA with culture and sensitivity still needs to be collected. Mild loose stools secondary to IV antibiotic therapy, however observe for now. Chest x-ray report from yesterday indicates no evidence of pneumonia. Patient's symptoms did improve at time of admission, however continue to remain refractory to therapy as above. Continue to observe closely with consideration of IV vasopressors and/ or hospital transfer depending on his clinical course. Patient's is here during rounds this morning with additional telephone update of the patient's care and treatment plan with her daughter this morning during rounds. [facility] [place] in the a.[place]. Vancomycin trough level needs to be ordered after his third dose tomorrow with further inpatient care needed. Additional Tylenol this morning with continuation of IV Toradol until tomorrow morning for his fevers and generalized arthralgias. He is receiving high-dose IV Protonix as GI prophylaxis. (2) Tachycardia SNOMED Code(s): 7535653 Code(s): R00.0 - TACHYCARDIA, UNSPECIFIED Status: Acute Priority: Medium Annotation/Comment:: As above. Resolve this morning. Continue telemetry as above. No chest pain or anginal type symptoms. (3) Hyperlipidemia SNOMED Code(s): 68185812 Code(s): E78.5 - HYPERLIPIDEMIA, UNSPECIFIED Status: Chronic Priority: Medium Qualifiers: Hyperlipidemia type: unspecified Qualified Code(s): E78.5 - Hyperlipidemia , unspecified Annotation/Comment:: Currently under therapy (4) Hypertension SNOMED Code(s): 13994456 Code(s): I10 - ESSENTIAL (PRIMARY) HYPERTENSION Status: Chronic Priority : Medium Qualifiers: Hypertension type: essential hypertension Qualified Code(s): I10 - Essential (primary) hypertension Annotation/Comment:: Under good control so far during this hospitalization and in the emergency room despite tachycardia and suspicions of probable sepsis. Patient's Norvasc will be changed to every afternoon so that his antihypertensive medications can be staggered. (5) Osteoarthritis SNOMED Code(s): 052751110 Code(s): M19.90 - UNSPECIFIED OSTEOARTHRITIS, UNSPECIFIED SITE Status: Chronic Priority: Medium Qualifiers: Osteoarthritis location: multiple joints Osteoarthritis type: primary Qualified Code(s): M15.0 - Primary generalized (osteo)arthritis Annotation/Comment:: Stable by history with exception of generalized arthralgias currently secondary to his current infection. Continue IV Toradol as above. (6) Leukocytosis (leucocytosis) SNOMED Code(s): 695813986, 797025461 Code(s): D72.829 - ELEVATED WHITE BLOOD CELL COUNT, UNSPECIFIED Status: Acute Priority: High Qualifiers: Leukocytosis type: unspecified Qualified Code(s): D72.829 - Elevated white blood cell count, unspecified - Problem List Review Problem List Initiated/Reviewed/Updated: Yes - My Orders Last 24 Hours: My Active Orders 12/27/17 14:50 Discontinue Saline Lock [Peripheral IV Discontinue] [OM.PC] Routine 12/27/17 14:59 Ready for Discharge [RC] PER UNIT ROUTINE - Assessment Assessment:: As above - Plan Plan:: As above. Extensive precautions were given to the patient and his family as above, who is in agreement with the treatment plan. 12/25/2017 Patient is feeling some better. WBC continues to be elevated and staying around 17,000. Patient's labs reviewed with him and his . On vanco and Zithromax. Patient has allergy to PCN in form of rash. Will discuss with Dr Flynn in regards to antibiotics, final blood cultures pending. Patient has swollen lymph node on right side of neck which he feels is more tender and slightly bigger. Ordered CT scan of neck to rule out abscess. Patient denies any dental pain. Last fever was 2200. Will continue with current treatment plan, recheck labs in the morning. Patient is clinically improving at this time. Paty Andrews CNP 12/26/2017 Patient is feeling better, consulted with ID Dr Gamez at [place] yesterday recommended starting IV Rocephin if no abscess on neck CT scan. Started Rocephin , stopped vanco and zithromax. WBC much improved, ct scan abnormal and reviewed with the patent and . Patient and verbalized understanding and no further questions. Will refer to ENT. Will discuss case with Dr Flynn. Ordered oral pain medication to see if pain can be managed with oral meds. Paty Andrews CNP 12/28/17 late entry for 12/27/17 Rina Prieto MD He is feeling much better. Much less pain in throat and in neck. Ready for discharge. [place] [facility] appointment as an outpatient.
--- NOTE | 2017-12-28 11:07 | PCM.DCSUM1 ---
Discharge Summary - Hospital Course Diagnosis: Stroke: No - Discharge Data Discharge Date: 12/27/17 Discharge Disposition: Home, Self-Care 01 Condition: Good - Discharge Diagnosis/Problem(s) (1) Strep pharyngitis SNOMED Code(s): 26821758 ICD Code: J02.0 - STREPTOCOCCAL PHARYNGITIS Status: Acute Priority: High Onset Date: 12/23/17 Problem Details: Note persistent fevers and leukocytosis this morning with increase of his vancomycin therapy to 1.5 g IV every 12 hours started this morning per recommendations from pharmacy. Tachycardia has resolved with stable blood pressures. Continue every 2 hours vitals and telemetry for now. Positive strep screen on admission with strong suspicion of probable secondary sepsis especially in light of his high fever, tachycardia, and leukocytosis. Sepsis protocol initiated in the emergency room, including initiation of aggressive IV vancomycin therapy and additional IV Zithromax during this hospitalization. Note previous allergy to Augmentin. Blood cultures 2 were collected with results still pending. Additional UA with culture and sensitivity still needs to be collected. Mild loose stools secondary to IV antibiotic therapy, however observe for now. Chest x-ray report from yesterday indicates no evidence of pneumonia. Patient's symptoms did improve at time of admission, however continue to remain refractory to therapy as above. Continue to observe closely with consideration of IV vasopressors and/ or hospital transfer depending on his clinical course. Patient's is here during rounds this morning with additional telephone update of the patient's care and treatment plan with her daughter this morning during rounds. [facility] assumes care in the a.m. Vancomycin trough level needs to be ordered after his third dose tomorrow with further inpatient care needed. Additional Tylenol this morning with continuation of IV Toradol until tomorrow morning for his fevers and generalized arthralgias. He is receiving high-dose IV Protonix as GI prophylaxis. (2) Tachycardia SNOMED Code(s): 0380017 ICD Code: R00.0 - TACHYCARDIA, UNSPECIFIED Status: Acute Priority: Medium Problem Details: As above. Resolve this morning. Continue telemetry as above. No chest pain or anginal type symptoms. (3) Hyperlipidemia SNOMED Code(s): 73196447 ICD Code: E78.5 - HYPERLIPIDEMIA, UNSPECIFIED Status: Chronic Priority: Medium Problem Details: Currently under therapy Qualifiers: Hyperlipidemia type: unspecified Qualified Code(s): E78.5 - Hyperlipidemia , unspecified (4) Hypertension SNOMED Code(s): 99801037 ICD Code: I10 - ESSENTIAL (PRIMARY) HYPERTENSION Status: Chronic Priority : Medium Problem Details: Under good control so far during this hospitalization and in the emergency room despite tachycardia and suspicions of probable sepsis. Patient's Norvasc will be changed to every afternoon so that his antihypertensive medications can be staggered. Qualifiers: Hypertension type: essential hypertension Qualified Code(s): I10 - Essential (primary) hypertension (5) Osteoarthritis SNOMED Code(s): 994941940 ICD Code: M19.90 - UNSPECIFIED OSTEOARTHRITIS, UNSPECIFIED SITE Status: Chronic Priority: Medium Problem Details: Stable by history with exception of generalized arthralgias currently secondary to his current infection. Continue IV Toradol as above. Qualifiers: Osteoarthritis location: multiple joints Osteoarthritis type: primary Qualified Code(s): M15.0 - Primary generalized (osteo)arthritis (6) Leukocytosis (leucocytosis) SNOMED Code(s): 706653465, 876030662 ICD Code: D72.829 - ELEVATED WHITE BLOOD CELL COUNT, UNSPECIFIED Status: Acute Priority: High Qualifiers: Leukocytosis type: unspecified Qualified Code(s): D72.829 - Elevated white blood cell count, unspecified - Patient Instructions Diet: Regular Diet as Tolerated Activity: As Tolerated Driving: May Drive Today Showering/Bathing: May Shower Other/Special Instructions: Follow up at [facility]. They will call you with an appointment. Follow up at [facility] with Paty next week. Call for an appointment. - Discharge Plan *PRESCRIPTION DRUG MONITORING PROGRAM REVIEWED*: Not Applicable *COPY OF PRESCRIPTION DRUG MONITORING REPORT IN PATIENT LEORA: Not Applicable Prescriptions/Med Rec: Cefuroxime Axetil [Ceftin] 500 mg PO BID #20 tablet Home Medications: Home Meds Etodolac [Lodine] 300 mg PO DAILY 07/02/14 [History] Gabapentin [Neurontin] 300 mg PO BID 07/02/14 [History] Simvastatin [Zocor] 10 mg PO BEDTIME 07/02/14 [History] Valsartan/Hydrochlorothiazide [Diovan Hct 160-25 mg Tablet] 1 tab PO DAILY 07/02 [History] amLODIPine [Norvasc] 10 mg PO DAILY 07/02/14 [History] Acetaminophen 1,000 mg PO Q6H 12/23/17 [History] Sulfacetamide Sodium/Sulfur [Sulfacetamide-Sulfur 10-5% Crm] 1 dose TOP DAILY [History] metroNIDAZOLE [Metronidazole] 1 applic TOP BID 12/23/17 [History] Cefuroxime Axetil [Ceftin] 500 mg PO BID #20 tablet 12/27/17 [Rx] Patient Handouts: Potassium Salts tablets, extended-release tablets or capsules , Cefuroxime tablets, Pantoprazole injection, Strep Throat, Sepsis, Adult, Sinus Tachycardia, Fever, Adult, [id number], MRSA FAQs - [facility] Forms: ED Department Discharge Referrals: Paty Andrews NP [Primary Care Provider] - - Discharge Summary/Plan Comment DC Time >30 min.: No - Patient Data Vitals - Most Recent: Last Vital Signs Temp 97.5 F 12/27/17 12:00 Pulse 62 12/27/17 12:00 Resp 16 12/27/17 12:00 BP 141/71 H 12/27/17 12:00 Pulse Ox 95 12/27/17 12:00 Weight - Most Recent: 295 lb 14.4 oz CONOR Results - Last 24 hrs: Microbiology 12/23/17 19:45 Aerobic Blood Culture - Preliminary Blood - Venous - Lab Draw NO GROWTH AFTER 4 DAYS Anaerobic Blood Culture - Preliminary NO GROWTH AFTER 4 DAYS 12/23/17 18:35 Aerobic Blood Culture - Preliminary Blood - Venous NO GROWTH AFTER 4 DAYS Anaerobic Blood Culture - Preliminary NO GROWTH AFTER 4 DAYS Med Orders - Current: Current Medications Discontinued Medications Acetaminophen (Tylenol) 650 mg PO Q4H PRN PRN Reason: Pain (Mild 1-3)/fever Last Admin: 12/27/17 03:46 Dose: 650 mg Albuterol (Proventil Neb Soln) 2.5 mg NEB Q2H PRN PRN Reason: Dyspnea Albuterol/Ipratropium (Duoneb 3.0-0.5 Mg/3 Ml) 3 ml NEB Q4H PRN PRN Reason: Dyspnea Amlodipine Besylate (Norvasc) 10 mg PO DAILY [facility] Last Admin: 12/24/17 10:41 Dose: Not Given Amlodipine Besylate (Norvasc) 10 mg PO QPM [facility] Last Admin: 12/25/17 17:22 Dose: 10 mg Amlodipine Besylate (Norvasc) 5 mg PO QPM [facility] Last Admin: 12/26/17 17:31 Dose: 5 mg Ceftriaxone Sodium (Rocephin) 1 gm IVPUSH Q12HR [facility] Last Admin: 12/25/17 20:15 Dose: 1 gm Ceftriaxone Sodium (Rocephin) 1 gm IVPUSH ONETIME ONE Stop: 12/25/17 13:31 Last Admin: 12/25/17 14:08 Dose: 1 gm Fentanyl (Sublimaze) 50 mcg IVPUSH Q4H PRN PRN Reason: Pain Gabapentin (Neurontin) 300 mg PO BID [facility] Last Admin: 12/27/17 07:56 Dose: 300 mg Guaifenesin/Dextromethorphan (Mucinex Dm Er 600-30 Mg) 1 tab PO BID [facility] Last Admin: 12/25/17 17:23 Dose: 1 tab Hydrochlorothiazide (Hydrochlorothiazide) 25 mg PO DAILY [facility] Last Admin: 12/27/17 07:57 Dose: 25 mg Azithromycin 500 mg/ Sodium (Chloride) 250 mls @ 250 mls/hr IV Q24H [facility] Last Admin: 12/23/17 19:47 Dose: 250 mls/hr Vancomycin HCl 1 gm/ Sodium (Chloride) 250 mls @ 250 mls/hr IV Q24H [facility] Last Admin: 12/23/17 19:06 Dose: 250 mls/hr Lactated Ringer's (Ringers, Lactated) 1,000 mls @ 999 mls/hr IV .BOLUS ONE Stop: 12/23/17 19:41 Last Admin: 12/23/17 18:46 Dose: 999 mls/hr Lactated Ringer's (Ringers, Lactated) 1,000 mls @ 999 mls/hr IV ONETIME ONE Stop: 12/23/17 21:52 Last Admin: 12/23/17 21:32 Dose: 999 mls/hr Lactated Ringer's (Ringers, Lactated) 1,000 mls @ 125 mls/hr IV ASDIRECTED [facility] Last Admin: 12/24/17 07:12 Dose: 125 mls/hr Azithromycin 500 mg/ Sodium (Chloride) 250 mls @ 250 mls/hr IV Q24H [facility] Last Admin: 12/24/17 18:19 Dose: 250 mls/hr Vancomycin HCl 1.5 gm/ (Dextrose/Water) 500 mls @ 220 mls/hr IV Q12H [facility] Last Admin: 12/25/17 09:05 Dose: 220 mls/hr Lactated Ringer's (Ringers, Lactated) 1,000 mls @ 999 mls/hr IV .BOLUS ONE Stop: 12/24/17 09:39 Last Admin: 12/24/17 10:41 Dose: Not Given Lactated Ringer's (Ringers, Lactated) 1,000 mls @ 150 mls/hr IV ASDIRECTED [facility] Last Admin: 12/25/17 08:45 Dose: 150 mls/hr Ceftriaxone Sodium 1 gm/ (Sodium Chloride) 100 mls @ 200 mls/hr IV Q12H [facility] Last Admin: 12/27/17 07:59 Dose: 200 mls/hr Ceftriaxone Sodium 1 gm/ (Sodium Chloride) 100 mls @ 200 mls/hr IV ONETIME ONE Stop: 12/27/17 12:29 Last Admin: 12/27/17 12:18 Dose: 200 mls/hr Iopamidol (Isovue-300 (61%)) 100 ml IVPUSH ONETIME ONE Stop: 12/25/17 10:33 Last Admin: 12/25/17 13:12 Dose: 100 ml Ketorolac Tromethamine (Toradol) 30 mg IVPUSH ONETIME ONE Stop: 12/23/17 20:51 Last Admin: 12/23/17 21:32 Dose: 30 mg Ketorolac Tromethamine (Toradol) 15 mg IVPUSH Q6H PRN PRN Reason: Fever Greater Than 102 Stop: 12/28/17 20:51 Ketorolac Tromethamine (Toradol) 15 mg IVPUSH Q6H PRN PRN Reason: Fever Greater Than 102 Stop: 12/25/17 08:00 Last Admin: 12/25/17 05:06 Dose: 15 mg Ketorolac Tromethamine (Toradol) 15 mg IVPUSH Q6H [facility] Stop: 12/30/17 20:05 Last Admin: 12/27/17 07:57 Dose: 15 mg Magnesium Oxide (Magnesium Oxide) 400 mg PO QPM [facility] Last Admin: 12/26/17 17:31 Dose: 400 mg Non-Formulary Medication (Metronidazole [Metronidazole]) 1 applic TOP BID [facility] Non-Formulary Medication (Sulfacetamide Sodium/Sulfur [Sulfacetamide-Sulfur 10-5 % Crm]) 1 dose TOP DAILY [facility] Pantoprazole Sodium (Protonix Iv) 40 mg IVPUSH Q12H [facility] Last Admin: 12/25/17 08:03 Dose: 40 mg Pantoprazole Sodium (Protonix Iv) 40 mg IVPUSH DAILY [facility] Last Admin: 12/27/17 07:58 Dose: 40 mg Phenol/Menthol (Chloraseptic Throat [place]) 0 ml MUCMEM Q2H PRN PRN Reason: Sore Throat Potassium Chloride (Klor-Con M20) 20 meq PO DAILY [facility] Last Admin: 12/24/17 08:28 Dose: 20 meq Potassium Chloride (Klor-Con M20) 20 meq PO TID [facility] Last Admin: 12/25/17 17:22 Dose: 20 meq Potassium Chloride (Klor-Con M20) 10 meq PO BID [facility] Last Admin: 12/27/17 07:56 Dose: 10 meq Simvastatin (Zocor) 10 mg PO BEDTIME [facility] Last Admin: 12/26/17 20:05 Dose: 10 mg Sodium Chloride (Saline Flush) 10 ml FLUSH ASDIRECTED PRN PRN Reason: Keep Vein Open Last Admin: 12/27/17 12:21 Dose: 10 ml Sodium Chloride (Saline Flush) 10 ml FLUSH ASDIRECTED PRN PRN Reason: Keep Vein Open Sodium Chloride (Saline Flush) 10 ml FLUSH Q12H [facility] Last Admin: 12/25/17 08:45 Dose: 10 ml Sodium Chloride (Saline Flush) 10 ml FLUSH ONETIME PRN PRN Reason: Keep Vein Open Stop: 12/25/17 14:00 Sodium Chloride (Saline Flush) 10 ml FLUSH Q12HR [facility] Last Admin: 12/27/17 07:59 Dose: 10 ml Temazepam (Restoril) 15 mg PO BEDTIME PRN PRN Reason: Insomnia Last Admin: 12/24/17 22:17 Dose: 15 mg Tramadol HCl (Ultram) 50 mg PO Q6H PRN PRN Reason: Sore Throat Last Admin: 12/26/17 22:11 Dose: 50 mg Valsartan (Diovan) 160 mg PO DAILY [facility] Last Admin: 12/25/17 07:53 Dose: 160 mg Valsartan (Diovan) 80 mg PO DAILY [facility] Last Admin: 12/27/17 07:56 Dose: 80 mg
== END 2017-12-27 15:50 | disposition home or self-care (01) | DRG 872 ==
LOC: LL.ED 18:25 → LL.MS 19:35 → UNDOADMIN 19:35 → LL.MS 20:41
PROVIDERS: ADMIT Family Medicine; ATTEND Family Medicine
DX: A41.9 Sepsis, unspecified organism (principal); J02.0 Streptococcal pharyngitis; E87.6 Hypokalemia; E83.42 Hypomagnesemia; I10 Essential (primary) hypertension; E78.5 Hyperlipidemia, unspecified; M15.0 Primary generalized (osteo)arthritis; R59.9 Enlarged lymph nodes, unspecified; G62.9 Polyneuropathy, unspecified; N40.0 Benign prostatic hyperplasia without lower urinary tract symptoms; H91.92 Unspecified hearing loss, left ear; H54.7 Unspecified visual loss; M41.9 Scoliosis, unspecified; Z79.899 Other long term (current) drug therapy; Z88.0 Allergy status to penicillin; Z87.01 Personal history of pneumonia (recurrent); Z87.891 Personal history of nicotine dependence
CPT/HCPCS: 36415; 70491; 71045; 80053; 81001; 82272; 83605; 83735; 85025; 86140; 87040; 87430; 87641; 87804; 93005; 96361; 96365; 96374; 99285; A9270-GY; C9113; J0456; J0696; J1885; J3370; J7050; J7060; J7120; Q9967

== ENCOUNTER → 2024-07-04 | Day surgery (SDC) | payer MEDICARE ==
[~2024-07-04] MED LIST: Midazolam 1 MG/ML 2 ML SDV ONE; Propofol 200 MG/20 ML SDV ONE; Sodium Chloride 0.9% 10 ML Syringe FLUSH PRN
[2024-07-04] MEDS: Lactated Ringers 1,000 ML IV SCH (09:49)
[2024-07-04 12:09] VITALS: BP 123/72; PULSE 58
== END ==
LOC: LL.SDS 09:44
PROVIDERS: ATTEND Surgery
DX: Z12.11 Encounter for screening for malignant neoplasm of colon (principal)
CPT/HCPCS: 00811; 99100; J2250; J2704; J7120